=== PATIENT | female | born 1940 | race African-American/Black ===

== ENCOUNTER 2018-05-26 11:07 | Emergency (ER) | payer MEDICARE, MEDICAID ==
[2018-05-26 11:55] LABS: #Basophils 0.1 thou/uL (0.0-0.2); #Eosinphils 0.1 thou/uL (0.0-0.7); #Lymphocytes 1.2 thou/uL (1.20-3.40); #Monocytes 0.4 thou/uL (0.11-0.59); #Neutrophils 4.3 thou/uL (1.40-6.50); %Basophils 0.8 % (0.0-1.0); %Eosinophils 1.8 % (0.0-10.0); %Lymphocytes 20.1 % (21.0-51.0); %Monocytes 7.1 % (0.0-10.0); %Neutrophils 70.2 % (42.0-75.0); Hemoglobin 12.5 g/dL (12.0-16.0); Mean Corpuscular HGB CONC 32.1 g/dL (32.0-36.0); Mean Corpuscular Volume 90.5 fL (78.0-98.0); RBC Distribution Width 14.1 % (11.5-14.5); White Blood Cell (WBC) Count 6.1 thou/uL (4.8-10.8)
[2018-05-26 12:13] LABS: Bilirubin Negative (Negative); Blood, Urine Negative (Negative); Clarity CLOUDY (Clear); Glucose, Urine (Dipstick) Negative (Negative); Leukocyte Small (Negative); Nitrite Positive (Negative); Protein, Urine (Dipstick) 30 mg/dL (Neg-Trace); Specific Gravity, Urine 1.017 (1.002-1.036); Urobilinogen 0.2 mg/dL (0.2-1.0); pH, Urine 7.5 (5.0-9.0)
[2018-05-26 12:14] LABS: Mean Platelet Volume 10.5 fL (7.4-10.4); Platelet Count 151 thou/uL (130-400)
[2018-05-26 12:16] LABS: Bacteria/HPF 4+ HPF (None Seen); Hyaline Casts/LPF 7-10 HYALINE CAST LPF (0-3 Hyaline); Pathc Cast-AUWi Flag 2.47 (0-2.49); RBC/HPF 0-3 HPF (0-3); Squamous Epithelial 21-50 HPF (0-3)
[2018-05-26 12:19] LABS: ALT (SGPT) 13 U/L (8-55); AST (SGOT) 16 U/L (5-34); Albumin 4.1 g/dL (3.4-4.8); Alkaline Phosphatase 70 U/L (40-150); Anion Gap 12 mmol/L (10-20); BUN (Urea Nitrogen) 15 mg/dL (9.8-20.1); Bilirubin, Total 0.9 mg/dL (0.2-1.2); CK (CPK) 125 U/L (29-168); Calc. Creatinine Clearance 0 mL/min (70-130); Calcium 10.5 mg/dL (7.8-10.44); Carbon Dioxide 24 mmol/L (23-31); Chloride 109 mmol/L (98-107); Estimated GFR-MDRD 56; Globulin 3.2 g/dL (2.4-3.5); Glucose 131 mg/dL (83-110); Lipase 50 U/L (8-78); Potassium 3.6 mmol/L (3.5-5.1); Protein, Total 7.3 g/dL (6.0-8.3); Sodium 141 mmol/L (136-145)
[2018-05-26 12:22] LABS: CKMB 2.6 ng/mL (0-6.6); Troponin I Less than 0.010 ng/mL (< 0.028)
[2018-05-26] MEDS ORDERED: Ciprofloxacin 500 MG TAB ONE (12:40)
--- NOTE | 2018-05-26 12:46 | RAD ---
CHEST ONE VIEW: History: Chest pain. Comparison: 04-18-15 FINDINGS: Heart size is enlarged. No pneumothorax. A dual-lead pacer is in place. IMPRESSION: Cardiomegaly. POS: [facility]
--- NOTE | 2018-05-26 12:49 | CT ---
CT BRAIN WITHOUT CONTRAST: History: Altered mental status. Comparison: None. FINDINGS: No hemorrhage or infarct. No midline shift or mass effect. Moderate atrophy. Basal ganglia calcificat ions. Calvarium is intact. Paranasal sinuses and mastoids are clear. IMPRESSION: No acute intracranial abnormality. POS: [facility]
--- NOTE | 2018-05-29 13:25 | EKG ---
Test Reason : Blood Pressure : / mmHG Vent. Rate : 082 BPM Atrial Rate : 082 BPM P-R Int : 190 ms QRS Dur : 156 ms QT Int : 408 ms P-R-T Axes : 000 -65 123 degrees QTc Int : 476 ms AV dual-paced rhythm Abnormal ECG Confirmed by ARNIE LAI ([id number]), editor city AINSLEY CRUZ ([id number]) on 05/29/2018 1:24:27 PM Referred By: Confirmed By:ARNIE LAI
== END 2018-05-26 13:11 | disposition home or self-care (01) ==
LOC: ERS 11:07
DX: N39.0 Urinary tract infection, site not specified (principal); E03.9 Hypothyroidism, unspecified; E78.5 Hyperlipidemia, unspecified; M10.9 Gout, unspecified; I10 Essential (primary) hypertension; Z79.82 Long term (current) use of aspirin; Z79.899 Other long term (current) drug therapy
CPT/HCPCS: 36415; 70450; 71045; 80053; 81003; 81015; 82553; 83690; 84443; 84484; 85025; 87077; 87086; 87186; 93005

== ENCOUNTER 2018-07-20 08:55 | Outpatient (CLI) | payer MEDICARE, MEDICAID ==
[2018-07-20 10:56] LABS: #Eosinphils 0.1 thou/uL (0.0-0.7); #Lymphocytes 1.1 thou/uL (1.20-3.40); #Monocytes 0.5 thou/uL (0.11-0.59); %Basophils 0.3 % (0.0-1.0); %Eosinophils 1.7 % (0.0-10.0); %Lymphocytes 19.8 % (21.0-51.0); %Monocytes 8.1 % (0.0-10.0); Mean Corpuscular HGB CONC 31.8 g/dL (32.0-36.0); Mean Corpuscular Hemoglobin 29.1 pg (27.0-31.0); Mean Corpuscular Volume 91.7 fL (78.0-98.0); Mean Platelet Volume 10.2 fL (7.4-10.4); Platelet Count 157 thou/uL (130-400); RBC Distribution Width 13.6 % (11.5-14.5); Red Blood Cell (RBC) Count 3.76 mill/uL (4.20-5.40); White Blood Cell (WBC) Count 5.7 thou/uL (4.8-10.8)
[2018-07-20 11:15] LABS: ALT (SGPT) 20 U/L (8-55); AST (SGOT) 18 U/L (5-34); Albumin 3.9 g/dL (3.4-4.8); Alkaline Phosphatase 75 U/L (40-150); Anion Gap 9 mmol/L (10-20); BUN (Urea Nitrogen) 16 mg/dL (9.8-20.1); Bilirubin, Total 0.7 mg/dL (0.2-1.2); Calc. Creatinine Clearance 0 mL/min (70-130); Calcium 9.8 mg/dL (7.8-10.44); Carbon Dioxide 30 mmol/L (23-31); Cardiac Risk 2.4 (Less than 4.5); Chloride 107 mmol/L (98-107); Cholesterol 112 mg/dl (< 200 Desired); Estimated GFR-MDRD 59; Globulin 2.9 g/dL (2.4-3.5); Glucose 122 mg/dL (83-110); HDL Cholesterol 47 mg/dL (>60 Neg Risk); LDL Cholesterol, Calculated 54 mg/dL; Potassium 3.5 mmol/L (3.5-5.1); Protein, Total 6.8 g/dL (6.0-8.3); Sodium 142 mmol/L (136-145); Triglycerides 54 mg/dL (Less than 150)
--- NOTE | 2018-07-20 13:16 | EKG ---
Test Reason : Blood Pressure : / mmHG Vent. Rate : 065 BPM Atrial Rate : 065 BPM P-R Int : 000 ms QRS Dur : 156 ms QT Int : 440 ms P-R-T Axes : 000 -72 109 degrees QTc Int : 457 ms AV sequential or dual chamber electronic pacemaker When compared with ECG of 26-MAY-2018 11:19, Vent. rate has decreased BY 17 BPM Confirmed by JULIANA RINCON, DR. Mendoza ([id number]) on 07/20/2018 1:16:13 PM Referred By: BONNIE Confirmed By:DR. Reji ANDREWS MD
--- NOTE | 2018-07-20 13:33 | RAD ---
PA AND LATERAL CHEST: History: Pre-operative evaluation. FINDINGS: Comparison made with exam of 04-18-15 Left sided pacemaker device is in place. The heart is enlarged. The aorta is tortuous. The lungs are well expanded without focal areas of consolidation, pneumothoraces, ramon pulmonary edema or pleural effusions. There are degenerative changes in the spine. IMPRESSION: No acute process. POS: [facility]
== END 2018-07-20 08:56 | disposition home or self-care (01) ==
LOC: LABBT 08:55
PROVIDERS: ATTEND Internal Medicine Cardiovascular Disease
DX: R94.39 Abnormal result of other cardiovascular function study (principal)
CPT/HCPCS: 71046; 80053; 80061; 84443; 85025; 93005; 93010

== ENCOUNTER 2018-07-23 05:48 | Day surgery (SDC) | payer MEDICARE, MEDICAID ==
[2018-07-20 09:27] VITALS: BMI 33.6
[2018-07-23] MEDS ORDERED: Lidocaine 1% (PF) 30 ML VIAL ONE (06:31)
[2018-07-23] MEDS ORDERED: Heparin 10,000 UNITS/1 ML VIAL ONE (06:46)
[2018-07-23] MEDS ORDERED: Midazolam HCl 2 mg/2 ml Vial ONE (07:06)
[2018-07-23] MEDS ORDERED: Fentanyl 100 MCG/2 ML VIAL ONE (07:07)
[2018-07-23] MEDS ORDERED: hydrALAZINE 20 MG/ML VIAL ONE (07:29)
[2018-07-23] MEDS ORDERED: Protamine Sulfate 50 MG/5 ML VIAL ONE (07:29)
[2018-07-23] MEDS ORDERED: Nitroglycerin 4.9 GM Bottle ONE (07:40)
== END 2018-07-23 15:12 | disposition home or self-care (01) ==
LOC: CCL 05:48
PROVIDERS: ATTEND Internal Medicine Cardiovascular Disease
PROC: 4A023N7 Measurement of Cardiac Sampling and Pressure, Left Heart, Percutaneous Approach (ICD-10-PCS; principal; 2018-07-23)
PROC: B2111ZZ Fluoroscopy of Multiple Coronary Arteries using Low Osmolar Contrast (ICD-10-PCS; 2018-07-23)
DX: I25.10 Atherosclerotic heart disease of native coronary artery without angina pectoris (principal); E78.5 Hyperlipidemia, unspecified; E11.9 Type 2 diabetes mellitus without complications; I48.0 Paroxysmal atrial fibrillation; J45.909 Unspecified asthma, uncomplicated; E78.00 Pure hypercholesterolemia, unspecified; I34.0 Nonrheumatic mitral (valve) insufficiency; I35.2 Nonrheumatic aortic (valve) stenosis with insufficiency; E03.9 Hypothyroidism, unspecified; I11.9 Hypertensive heart disease without heart failure; Z79.82 Long term (current) use of aspirin; Z79.899 Other long term (current) drug therapy; Z95.5 Presence of coronary angioplasty implant and graft
CPT/HCPCS: 85347; 93458; 99152; C1769; J0360; J1644; J2001; J2250; J2720; J3010

== ENCOUNTER 2019-12-08 13:51 | Inpatient (IN) | payer MEDICARE, MEDICAID ==
[2019-12-08 14:36] LABS: #Eosinphils 0.1 thou/uL (0.0-0.7); #Lymphocytes 1.4 thou/uL (1.20-3.40); #Monocytes 0.4 thou/uL (0.11-0.59); #Neutrophils 3.7 thou/uL (1.40-6.50); %Basophils 0.8 % (0.0-1.0); %Eosinophils 1.3 % (0.0-10.0); %Lymphocytes 24.6 % (21.0-51.0); %Monocytes 7.6 % (0.0-10.0); %Neutrophils 65.7 % (42.0-75.0); Hemoglobin 12.2 g/dL (12.0-16.0); Mean Corpuscular HGB CONC 31.2 g/dL (32.0-36.0); Mean Corpuscular Hemoglobin 29.3 pg (27.0-31.0); Mean Corpuscular Volume 93.9 fL (78.0-98.0); Mean Platelet Volume 10.1 fL (7.4-10.4); Platelet Count 152 thou/uL (130-400); RBC Distribution Width 14.1 % (11.5-14.5); Red Blood Cell (RBC) Count 4.15 mill/uL (4.20-5.40); White Blood Cell (WBC) Count 5.7 thou/uL (4.8-10.8)
[2019-12-08 14:51] LABS: Bacteria/HPF 4+ HPF (None Seen); Bilirubin Negative (Negative); Blood, Urine 1+ (Negative); Clarity Turbid (Clear); Glucose, Urine (Dipstick) Normal (Negative); Leukocyte Negative Leu/uL (Negative); Nitrite 2+ (Negative); Protein, Urine (Dipstick) 100 mg/dL (Neg-Trace); RBC/HPF 0-3 HPF (0-3); Squamous Epithelial 0-3 HPF (0-3); Urobilinogen Normal mg/dL (Less than 2); WBC/HPF 0-3 HPF (0-3)
[2019-12-08] MEDS ORDERED: hydrALAZINE 20 MG/ML VIAL ONE (14:54)
[2019-12-08 14:55] LABS: ALT (SGPT) 14 U/L (8-55); AST (SGOT) 18 U/L (5-34); Albumin 4.2 g/dL (3.4-4.8); Alkaline Phosphatase 87 U/L (40-110); Anion Gap 9 mmol/L (10-20); BUN (Urea Nitrogen) 16 mg/dL (9.8-20.1); Bilirubin, Total 0.7 mg/dL (0.2-1.2); CK (CPK) 272 U/L (29-168); Calc. Creatinine Clearance 0 mL/min (70-130); Calcium 10.6 mg/dL (7.8-10.44); Carbon Dioxide 28 mmol/L (23-31); Chloride 109 mmol/L (98-107); Estimated GFR-MDRD 47; Globulin 3.3 g/dL (2.4-3.5); Glucose 132 mg/dL (83-110); Lipase 38 U/L (8-78); Potassium 3.4 mmol/L (3.5-5.1); Protein, Total 7.5 g/dL (6.0-8.3); Sodium 143 mmol/L (136-145)
[2019-12-08 15:16] LABS: CKMB 4.8 ng/mL (0-6.6)
--- NOTE | 2019-12-08 15:20 | RAD ---
PORTABLE CHEST 1 VIEW: DATE: 12/08/2019. TIME: 2:38 PM. HISTORY: Altered mental status. COMPARISON: 07/20/2018. FINDINGS: The heart is enlarged. Left-sided pacing device remains in place. The aorta is tortuous. The lungs are well expanded without lobar consolidation, pneumothoraces, ramon pulmonary edema, or pleural eff usions. IMPRESSION: No acute process. POS: [facility]
[2019-12-08] MEDS ORDERED: cefTRIAXone\\ROCEPHIN 2 GM VIAL ONE (15:40)
[2019-12-08] MEDS ORDERED: Lorazepam 2 MG/ML VIAL ONE (16:05)
--- NOTE | 2019-12-08 16:29 | CT ---
CT BRAIN WITHOUT CONTRAST: 12/08/19 HISTORY: Altered mental status. COMPARISON: 03/26/18. There are changes of cortical atrophy and chronic small vessel ischemic disease. Bilateral basal gang mervat calcifications are again seen. The ventricular size is stable and the basilar cisterns patent. No evidence of acute infarct, hemorrhage, midline shift or abnormal extra-axial fluid collections are seen. The bony calvarium is intact. There is mucosal disease in the paranasal sinuses. IMPRESSION: No CT evidence of acute intracranial process. POS: [facility]
[2019-12-08 18:19] LABS: Troponin I 0.041 ng/mL (< 0.028)
[2019-12-08] MEDS ORDERED: Ondansetron PF 4 MG/2 ML Vial IVP PRN (18:22)
[2019-12-08] MEDS ORDERED: Ondansetron ODT 4 MG TAB SL PRN (18:22)
[2019-12-08] MEDS ORDERED: Haloperidol 1 MG TAB PO PRN (18:24)
[2019-12-08] MEDS: Sodium Chloride 0.9% 1,000 ML IV SCH (18:40)
--- NOTE | 2019-12-08 18:41 | HP ---
The HPI is based on the EMR and the ED report, as well as verbal report from the son because the patient is confused on encounter. HISTORY OF PRESENT ILLNESS: Ms. Rooney is an 79-year-old female with a medical history of type 2 diabetes mellitus, hypertension, and CKD who presents for confusion. The patient lives on her own; however, three days ago, the son came to the patient's apartment and saw that the patient was confused. The son then took the patient to his apartment and lived with her for the last couple of days. During the patient's stay in the son's apartment, the patient refused to take any of the medications, and her confusion and agitation continued to progress, so the son brought the patient to the ED. On encounter, the patient is lying comfortably in bed and is mildly agitated. She denies generalized weakness, fatigue, chills, night sweats, chest pain, palpitations, back pain, diarrhea, polyuria, hematuria, hematochezia, hematemesis, melena, dysuria, increased urinary frequency or urinary incontinence. She also denies recently leaving her apartment to crowded places. ED COURSE: In the ED, the patient's blood pressure was found to be grossly elevated, CK was mildly elevated and troponin was mildly elevated as well. The patient also had a CT head and chest x-ray that were unremarkable for any acute process. The patient was admitted to the telemetry observation floor for further treatment. REVIEW OF SYSTEMS: A full review of system was conducted and all was negative with the exception of that mentioned in the HPI. PAST MEDICAL HISTORY: Hypertension, type 2 diabetes, no longer being actively treated with medications, hyperlipidemia, glaucoma. PAST SURGICAL HISTORY: Hysterectomy, pacemaker placed for bradycardia. ALLERGIES: NO KNOWN DRUG ALLERGIES. SOCIAL HISTORY: , living on her own. Does not smoke, drink, or do recreational drugs. She lives by herself and takes care of herself. FAMILY HISTORY: Hypertension, coronary artery disease in the father as well as cancer. MEDICATIONS: Per EMR. Medications will be reconciled. PHYSICAL EXAMINATION: VITAL SIGNS: Blood pressure 217/95, per ED physician. Prior to encounter, blood pressure was brought down to 174/90s. Pulse 61, respiratory rate 20, temperature 99.2 oral, and saturating 98% on room air. GENERAL: Lying comfortably in bed, mildly agitated. HEENT: Atraumatic and normocephalic. Pupils appear equal, about 3 mm; however , the patient would not allow to do a light exam. NECK: The patient refused. LUNGS: Clear to auscultation bilaterally in the anterior conway. The patient otherwise refused an exam. CARDIOVASCULAR: Regular rate and rhythm. A systolic murmur 2/6, most audible in the left second intercostal space. ABDOMEN: Refused. EXTREMITIES: Refused. NEUROLOGIC: Alert, oriented x1 only to self. LABS AND IMAGING: Reviewed. EKG showed paced rhythm with no concordant changes suggestive of an VT. ASSESSMENT AND PLAN: Ms. Rooney is an 79-year-old female with a medical history of hypertension, who presents with hypertensive emergency due to medication nonadherence. 1. Hypertensive emergency. a. Blood pressure 200s in the ED. b. Administered hydralazine. Blood pressure went down to 170s. c. Per the son, the patient has not been taking her medications at least the past couple of days. d. On exam, the patient is confused, CK mildly elevated and troponin mildly elevated, therefore, hypertensive emergency. e. Plan: I. Gradually decrease the patient's blood pressure to goal of below 130 to 80 based on AHA guidelines. II. We will restart the patient's antihypertensive gradually as well as easily titratable IV medication p.r.n. 2. Troponinemia. a. Most likely due to demand ischemia, result of the grossly elevated blood pressure. b. We will continue to trend troponins. 3. Type 2 diabetes. a. The patient was diagnosed years ago, however, is not currently managed with medication. b. We will treat with mild sliding scale. 4. Urinary bacterial colonization. a. Urinalysis shows bacteria, however, no leukocyte esterase or white count. b. The patient denies any symptoms suggestive of urinary tract infection. c. We will continue to follow for symptoms of fever. If the patient spikes a fever, can start her on ceftriaxone. Pending further evaluation. 5. Disposition/prophylaxis. a. The patient is full code. The son, who is the patient's surrogate decision maker, requested the patient to be full code. 6. Deep venous thrombosis prophylaxis, enoxaparin. 7. Gastrointestinal prophylaxis not indicated. 8. Expected length of stay two midnights. Job ID: [id number] [facility]
[2019-12-08] MEDS ORDERED: Potassium Chloride 20 MEQ TAB PO SCH (20:00)
[2019-12-08] MEDS ORDERED: hydrALAZINE 25 MG TAB PO SCH (20:00)
[2019-12-08] MEDS ORDERED: Acetaminophen 650 MG Suppository PR PRN (21:03)
[2019-12-08] MEDS ORDERED: hydrALAZINE 20 MG/ML VIAL SLOW IVP PRN (21:04)
--- NOTE | 2019-12-08 21:07 | PDOC.EVN ---
Event Note - Event Note Event Note: Notified by RN, patient refusing to take oral potassium (took 1/2 tablet) also with mild temp. Refusing hydralazine. Acetaminophen MA ordered given low grade temp of 99.4, IV hydralazine PRN for SBP >180 ordered as well as IV potassium replacement (20 mEq to complete total dose of [address] Murphy. Patient received rocephin in ED for suspected UTI. UA + nitrites and 4+ bacteria. UCx pending.
[2019-12-08] MEDS ORDERED: Potassium Chloride 20 MEQ in Premix Bag 1 BAG IVPB SCH (21:30)
[2019-12-08] MEDS: DorzolamidE/Timolol 2%/0.5% Ophth Soln 10 ml Bottle EA EYE SCH (21:46)
[2019-12-08] MEDS: Latanoprost 0.005% Ophth Soln 2.5 ml Bottle EA EYE SCH (21:46)
[2019-12-08] MEDS: Metoprolol Tartrate 100 MG TAB PO SCH (21:47)
[2019-12-08] MEDS: Atorvastatin Calcium 40 MG TAB PO SCH (21:48)
[2019-12-08] MEDS: hydrALAZINE 25 MG TAB PO SCH (21:48)
[2019-12-09] MEDS ORDERED: Labetalol HCl 100 MG/20 ML VIAL SLOW IVP SCH (00:15)
[2019-12-09] MEDS: hydrALAZINE 20 MG/ML VIAL SLOW IVP PRN ×3 (05:25→17:26)
[2019-12-09] MEDS: Levothyroxine Sodium 100 MCG TAB PO SCH (05:29)
[2019-12-09] MEDS: hydrALAZINE 25 MG TAB PO SCH ×3 (08:47→20:30)
[2019-12-09] MEDS: Aspirin Chewable 81 MG TAB PO SCH (08:47)
[2019-12-09] MEDS: Metoprolol Tartrate 100 MG TAB PO SCH ×2 (08:48→20:30)
[2019-12-09] MEDS: Enoxaparin Sodium 30 MG/0.3 ML SYRINGE SC SCH (08:48)
[2019-12-09] MEDS: DorzolamidE/Timolol 2%/0.5% Ophth Soln 10 ml Bottle EA EYE SCH ×3 (08:49→20:45)
[2019-12-09] MEDS ORDERED: Haloperidol 1 MG TAB PO PRN (08:58)
[2019-12-09] MEDS: Labetalol HCl 100 MG/20 ML VIAL SLOW IVP SCH ×3 (09:20→20:31)
[2019-12-09 10:17] LABS: Anion Gap 10 mmol/L (10-20); BUN (Urea Nitrogen) 10 mg/dL (9.8-20.1); Calc. Creatinine Clearance 64 mL/min (70-130); Carbon Dioxide 24 mmol/L (23-31); Chloride 110 mmol/L (98-107); Estimated GFR-MDRD 71; Glucose 122 mg/dL (83-110); Magnesium 1.3 mg/dL (1.6-2.6); Potassium 3.4 mmol/L (3.5-5.1); Sodium 141 mmol/L (136-145)
[2019-12-09 10:22] LABS: Troponin I 0.063 ng/mL (< 0.028)
--- NOTE | 2019-12-09 13:28 | PDOC.HOSPP ---
- Subjective Encounter Date: 12/09/19 Encounter Time: 09:00 Subjective: overnight, remains confused and refusing to take medications, however, this morning calmer and more cooperative. Has no complaints. Denies pain, headache, change in vision, chest pain, palpitations. - Objective Vital Signs & Weight: Vital Signs (12 hours) Temp Pulse Pulse Pulse Resp BP BP 12/09/19 11:24 99.0 F 61 18 12/09/19 11:20 61 184/82 H 12/09/19 09:41 62 66 163/72 H 12/09/19 09:20 60 163/71 H 12/09/19 08:47 63 191/81 H 12/09/19 07:32 98.5 F 63 16 12/09/19 05:25 61 200/81 H 12/09/19 04:00 98.2 F 62 18 BP BP Pulse Ox 12/09/19 11:24 184/82 H 96 12/09/19 11:20 12/09/19 09:41 158/68 H 12/09/19 09:20 12/09/19 08:47 12/09/19 07:32 191/81 H 97 12/09/19 05:25 12/09/19 04:00 193/78 H 98 Weight Weight 183 lb 9 oz I&O: 12/08/19 12/09/19 12/10/19 06:59 06:59 06:59 Intake Total 10 Balance 10 Result Diagrams: 12/08/19 14:18 12/09/19 09:36 Additional Labs: Accuchecks 12/08/19 16:12 POC Glucose 98 Hospitalist ROS - Review of Systems Constitutional: denies: fever, chills, sweats, weakness, malaise, other Respiratory: denies: cough, dry, shortness of breath, hemoptysis, SOB with excertion, pleuritic pain, sputum, wheezing, other Cardiovascular: denies: chest pain, palpitations, orthopnea, paroxysmal noc. dyspnea, edema, light headedness, other Gastrointestinal: denies: nausea, vomiting, abdominal pain, diarrhea, constipation, melena, hematochezia, other Genitourinary: denies: dysuria, frequency, incontinence, hematuria, retention, other - Medication Medications: Active Medications Generic Name Dose Route Start Last Admin Trade Name Freq PRN Reason Stop Dose Admin Acetaminophen 650 mg 12/08/19 21:03 12/09/19 00:16 Tylenol [place] 650 mg Q4H PRN Administration Headache/Fever or Pain Aspirin 81 mg 12/09/19 09:00 12/09/19 08:47 Aspirin Chewable PO 81 mg DAILY AMANDA Administration Atorvastatin Calcium 40 mg 12/08/19 21:00 12/08/19 21:48 Lipitor PO Not Given HS AMANDA Dorzolamide/Timolol 1 drop 12/08/19 21:00 12/09/19 08:49 Cosopt 2-0.5% Ophth Soln EA EYE 1 drop BID AMANDA Administration Enoxaparin Sodium 30 mg 12/09/19 09:00 12/09/19 08:48 Lovenox SC 30 mg 0900 AMANDA Administration Hydralazine HCl 50 mg 12/08/19 21:00 12/09/19 08:47 Apresoline PO 50 mg TID AMANDA Administration Hydralazine HCl 10 mg 12/08/19 18:24 12/09/19 11:20 Apresoline SLOW IVP 10 mg Q4H PRN Administration bp > 180/110 Sodium Chloride 1,000 mls @ 70 mls/hr 12/08/19 18:24 12/08/19 18:40 Normal Saline 0.9% IV 1,000 mls .[id number] AMANDA Administration Labetalol HCl 10 mg 12/09/19 09:00 12/09/19 09:20 Normodyne SLOW IVP 10 mg Q6H AMANDA Administration Latanoprost 1 drop 12/08/19 21:00 12/08/19 21:46 Xalatan 0.005% Ophth Soln EA EYE 1 drop HS AMANDA Administration Levothyroxine Sodium 100 mcg 12/09/19 06:00 12/09/19 05:29 Synthroid PO Not Given 0600 AMAN[facility] Metoprolol Tartrate 100 mg 12/08/19 21:00 12/09/19 08:48 Lopressor PO 100 mg BID AMANDA Administration Sodium Chloride 10 ml 12/08/19 21:00 12/09/19 08:50 Flush - Normal Saline IVF Not Given Q12HR AMANDA Sodium Chloride 10 ml 12/08/19 18:21 12/09/19 00:25 Flush - Normal Saline IVF 10 ml PRN PRN Administration Saline Flush - Exam General Appearance: NAD, awake alert Neck: supple, symmetric, no JVD, no thyromegaly, no lymphadenopathy, no carotid bruit Heart: RRR, no murmur, no gallops, no rubs, normal peripheral pulses Respiratory: CTAB, no wheezes, no rales, no ronchi, normal chest expansion, no tachypnea, normal percussion Gastrointestinal: soft, non-tender, non-distended, normal bowel sounds, no palpable masses, no hepatomegaly, no splenomegaly, no bruit Extremities: no edema Psychiatric: normal behavior, not oriented Hosp A/P - Plan #Hypertensive encephalopathy -patient not adherent to medications overnight, now more cooperative -remains confused though less agitated -denies symptoms of UTI; UA positive for bacteria but negative for leukoesterase or WBCs, suggestive of colonization rather than infection -spiked low grade fever despite receiving rocephin in ED -change to inpatient status -blood pressure control; goal to reduce blood pressure as soon as possible to 160/90s range, then gradually to goal 130/80 -if spikes another fever, repeat UA and start ceftriaxone for suspected UTI #type 2 NSTEMI -troponin downtrending likely demand due to hypertensive emergency
[2019-12-09] MEDS ORDERED: Potassium Chloride 20 MEQ TAB PO SCH (14:00)
[2019-12-09] MEDS ORDERED: Magnesium Oxide 400 MG TAB PO SCH (14:00)
[2019-12-09] MEDS: Sodium Chloride 0.9% 1,000 ML IV SCH (14:11)
[2019-12-09] MEDS ORDERED: SODIUM CHLORIDE 0.9% IVPB SCH (14:45)
[2019-12-09] MEDS ORDERED: MAGNESIUM SULFATE IVPB SCH (14:45)
[2019-12-09] MEDS ORDERED: POTASSIUM CHLORIDE IVPB SCH (14:45)
[2019-12-09] MEDS ORDERED: Furosemide 20 MG/2 ML VIAL SLOW IVP SCH (15:15)
[2019-12-09] MEDS ORDERED: cefTRIAXone\\ROCEPHIN 2 GM in Sodium Chloride 0.9% 100 ML IVPB SCH (16:00)
[2019-12-09] MEDS: Atorvastatin Calcium 40 MG TAB PO SCH (20:30)
[2019-12-09] MEDS: Latanoprost 0.005% Ophth Soln 2.5 ml Bottle EA EYE SCH (20:31)
[2019-12-10] MEDS: hydrALAZINE 20 MG/ML VIAL SLOW IVP PRN ×2 (00:47→12:07)
[2019-12-10] MEDS: Labetalol HCl 100 MG/20 ML VIAL SLOW IVP SCH ×4 (02:54→20:55)
[2019-12-10 06:44] LABS: Anion Gap 14 mmol/L (10-20); BUN (Urea Nitrogen) 10 mg/dL (9.8-20.1); Calc. Creatinine Clearance 56 mL/min (70-130); Calcium 10.4 mg/dL (7.8-10.44); Carbon Dioxide 20 mmol/L (23-31); Chloride 111 mmol/L (98-107); Estimated GFR-MDRD 60; Glucose 91 mg/dL (83-110); Potassium 3.9 mmol/L (3.5-5.1); Sodium 141 mmol/L (136-145)
[2019-12-10] MEDS: Levothyroxine Sodium 100 MCG TAB PO SCH (07:04)
[2019-12-10] MEDS: Furosemide 20 MG/2 ML VIAL SLOW IVP SCH (08:43)
[2019-12-10] MEDS: Enoxaparin Sodium 30 MG/0.3 ML SYRINGE SC SCH (08:47)
[2019-12-10] MEDS: DorzolamidE/Timolol 2%/0.5% Ophth Soln 10 ml Bottle EA EYE SCH ×2 (08:47→20:55)
[2019-12-10] MEDS: Metoprolol Tartrate 100 MG TAB PO SCH ×3 (08:48→20:52)
[2019-12-10] MEDS: hydrALAZINE 25 MG TAB PO SCH ×4 (08:48→20:51)
[2019-12-10] MEDS: Aspirin Chewable 81 MG TAB PO SCH ×2 (08:48→08:55)
[2019-12-10] MEDS ORDERED: Furosemide 20 MG TAB PO SCH (09:00)
[2019-12-10] MEDS: cefTRIAXone\\ROCEPHIN 1 GM in Sodium Chloride 0.9% 100 ML IVPB SCH (10:48)
[2019-12-10] MEDS: Isosorbide Mononitrate (ER) 30 MG TAB PO SCH ×2 (10:49→11:00)
[2019-12-10] MEDS: Amlodipine 10 MG TAB PO SCH ×2 (10:49→11:00)
--- NOTE | 2019-12-10 14:22 | PDOC.HOSPP ---
- Subjective Encounter Date: 12/10/19 Subjective: Confused. - Objective Vital Signs & Weight: Vital Signs (12 hours) Temp Pulse Resp BP BP BP Pulse Ox 12/10/19 12:07 60 186/86 H 12/10/19 12:00 98.7 F 60 24 H 186/86 H 99 12/10/19 11:00 83 172/80 H 12/10/19 08:52 83 172/80 H 12/10/19 08:43 83 172/80 H 12/10/19 07:51 98.5 F 83 18 172/80 H 98 12/10/19 07:29 99 12/10/19 04:35 98.8 F 77 16 158/81 H 99 12/10/19 02:54 65 186/86 H Weight Admit Weight 183 lb Weight 183 lb 9 oz I&O: 12/09/19 12/10/19 12/11/19 06:59 06:59 06:59 Intake Total 10 840 Balance 10 840 Result Diagrams: 12/08/19 14:18 12/10/19 06:15 Hospitalist ROS - Medication Medications: Active Medications Generic Name Dose Route Start Last Admin Trade Name Freq PRN Reason Stop Dose Admin Acetaminophen 650 mg 12/08/19 21:03 12/09/19 00:16 Tylenol [place] 650 mg Q4H PRN Administration Headache/Fever or Pain Aspirin 81 mg 12/09/19 09:00 12/10/19 08:55 Aspirin Chewable PO Not Given DAILY [facility] Atorvastatin Calcium 40 mg 12/08/19 21:00 12/09/19 20:30 Lipitor PO Not Given HS [facility] Dorzolamide/Timolol 1 drop 12/08/19 21:00 12/10/19 08:47 Cosopt 2-0.5% Ophth Soln EA EYE 1 drop BID AMANDA Administration Enoxaparin Sodium 30 mg 12/09/19 09:00 12/10/19 08:47 Lovenox SC 30 mg 0900 AMANDA Administration Furosemide 20 mg 12/10/19 09:00 12/10/19 08:43 Lasix SLOW IVP 20 mg DAILY AMANDA Administration Hydralazine HCl 50 mg 12/08/19 21:00 12/10/19 08:52 Apresoline PO Not Given TID [facility] Hydralazine HCl 10 mg 12/08/19 18:24 12/10/19 12:07 Apresoline SLOW IVP 10 mg Q4H PRN Administration bp > 180/110 Ceftriaxone Sodium 1 gm/ 100 mls @ 200 mls/hr 12/10/19 11:00 12/10/19 10:48 Sodium Chloride IVPB 100 mls 1100 AMANDA Administration Labetalol HCl 10 mg 12/09/19 09:00 12/10/19 08:43 Normodyne SLOW IVP 10 mg Q6H AMANDA Administration Latanoprost 1 drop 12/08/19 21:00 12/09/19 20:31 Xalatan 0.005% Ophth Soln EA EYE 1 drop HS AMANDA Administration Levothyroxine Sodium 100 mcg 12/09/19 06:00 12/10/19 07:04 Synthroid PO Not Given 0600 AM[facility] Metoprolol Tartrate 100 mg 12/08/19 21:00 12/10/19 08:54 Lopressor PO Not Given BID [facility] Sodium Chloride 10 ml 12/08/19 21:00 12/10/19 08:48 Flush - Normal Saline IVF 10 ml Q12HR AMANDA Administration Sodium Chloride 10 ml 12/08/19 18:21 12/09/19 00:25 Flush - Normal Saline IVF 10 ml PRN PRN Administration Saline Flush - Exam General Appearance: awake alert ENT: normocephalic atraumatic Neck: supple Heart: RRR, no gallops Respiratory: CTAB Gastrointestinal: soft, non-tender, non-distended Hosp A/P (1) Delirium Code(s): R41.0 - DISORIENTATION, UNSPECIFIED Status: Acute (2) UTI (urinary tract infection) Status: Acute (3) Hypertensive emergency Code(s): I16.1 - HYPERTENSIVE EMERGENCY Status: Acute - Plan The patient is not taking her oral medications including oral antihypertensives. Her blood pressure is being controlled with IV hydralazine and labetalol. Confusion could be delirium related to UTI. Start IV ceftriaxone.
[2019-12-10] MEDS: Atorvastatin Calcium 40 MG TAB PO SCH (20:51)
[2019-12-10] MEDS: Latanoprost 0.005% Ophth Soln 2.5 ml Bottle EA EYE SCH (20:55)
[2019-12-11] MEDS: Labetalol HCl 100 MG/20 ML VIAL SLOW IVP SCH ×4 (04:33→20:40)
[2019-12-11] MEDS: Levothyroxine Sodium 100 MCG TAB PO SCH (05:18)
[2019-12-11] MEDS: hydrALAZINE 25 MG TAB PO SCH ×3 (08:39→20:44)
[2019-12-11] MEDS: Aspirin Chewable 81 MG TAB PO SCH (08:39)
[2019-12-11] MEDS: Amlodipine 10 MG TAB PO SCH (08:39)
[2019-12-11] MEDS: Metoprolol Tartrate 100 MG TAB PO SCH ×2 (08:40→20:44)
[2019-12-11] MEDS: Isosorbide Mononitrate (ER) 30 MG TAB PO SCH (08:40)
[2019-12-11] MEDS: Furosemide 20 MG/2 ML VIAL SLOW IVP SCH (08:42)
[2019-12-11] MEDS: DorzolamidE/Timolol 2%/0.5% Ophth Soln 10 ml Bottle EA EYE SCH ×2 (08:42→20:46)
[2019-12-11] MEDS: Enoxaparin Sodium 30 MG/0.3 ML SYRINGE SC SCH (08:42)
[2019-12-11 08:47] LABS: Hemoglobin 13.3 g/dL (12.0-16.0); Mean Corpuscular HGB CONC 31.2 g/dL (32.0-36.0); Mean Corpuscular Hemoglobin 28.7 pg (27.0-31.0); Mean Platelet Volume 10.8 fL (7.4-10.4); Platelet Count 141 thou/uL (130-400); RBC Distribution Width 14.1 % (11.5-14.5); Red Blood Cell (RBC) Count 4.63 mill/uL (4.20-5.40); White Blood Cell (WBC) Count 5.8 thou/uL (4.8-10.8)
[2019-12-11 08:50] LABS: Anion Gap 16 mmol/L (10-20); BUN (Urea Nitrogen) 20 mg/dL (9.8-20.1); Calc. Creatinine Clearance 43 mL/min (70-130); Calcium 11.3 mg/dL (7.8-10.44); Carbon Dioxide 24 mmol/L (23-31); Chloride 107 mmol/L (98-107); Estimated GFR-MDRD 45; Glucose 82 mg/dL (83-110); Potassium 3.6 mmol/L (3.5-5.1); Sodium 143 mmol/L (136-145)
[2019-12-11 09:33] LABS: Hypochromia SLIGHT = 6-15 cells (100X) (0-5/hpf); Large Platelets SLIGHT; MDiff Complete? YES; Platelet Morphology Comment Appears Adequate
[2019-12-11] MEDS: Dextrose 5 %-0.45 % NaCl 1,000 ML IV SCH (10:07)
[2019-12-11] MEDS: cefTRIAXone\\ROCEPHIN 1 GM in Sodium Chloride 0.9% 100 ML IVPB SCH (10:12)
--- NOTE | 2019-12-11 10:40 | PDOC.HOSPP ---
- Subjective Encounter Date: 12/11/19 Subjective: Remains confused with poor PO intake. - Objective Vital Signs & Weight: Vital Signs (12 hours) Temp Pulse Resp BP BP BP Pulse Ox 12/11/19 08:42 82 107/51 L 12/11/19 08:39 82 12/11/19 08:00 98.2 F 82 17 107/51 L 98 12/11/19 04:33 69 183/88 H 12/11/19 04:13 69 16 183/88 H 99 12/11/19 00:00 99.1 F 64 16 135/62 98 Weight Admit Weight 183 lb Weight 183 lb 9 oz I&O: 12/10/19 12/11/19 12/12/19 06:59 06:59 06:59 Intake Total 840 0 Balance 840 0 Result Diagrams: 12/11/19 08:24 12/11/19 08:24 Hospitalist ROS - Medication Medications: Active Medications Generic Name Dose Route Start Last Admin Trade Name Freq PRN Reason Stop Dose Admin Acetaminophen 650 mg 12/08/19 21:03 12/09/19 00:16 Tylenol [place] 650 mg Q4H PRN Administration Headache/Fever or Pain Amlodipine Besylate 10 mg 12/11/19 09:00 12/11/19 08:39 Norvasc PO Not Given DAILY [facility] Aspirin 81 mg 12/09/19 09:00 12/11/19 08:39 Aspirin Chewable PO Not Given DAILY [facility] Atorvastatin Calcium 40 mg 12/08/19 21:00 12/10/19 20:51 Lipitor PO Not Given [facility] Dorzolamide/Timolol 1 drop 12/08/19 21:00 12/11/19 08:42 Cosopt 2-0.5% Ophth Soln EA EYE 1 drop BID AMANDA Administration Enoxaparin Sodium 30 mg 12/09/19 09:00 12/11/19 08:42 Lovenox SC 30 mg 0900 AMANDA Administration Furosemide 20 mg 12/10/19 09:00 12/11/19 08:42 Lasix SLOW IVP 20 mg DAILY AMANDA Administration Hydralazine HCl 50 mg 12/08/19 21:00 12/11/19 08:39 Apresoline PO Not Given TID AMANDA Hydralazine HCl 10 mg 12/08/19 18:24 12/10/19 12:07 Apresoline SLOW IVP 10 mg Q4H PRN Administration bp > 180/110 Ceftriaxone Sodium 1 gm/ 100 mls @ 200 mls/hr 12/10/19 11:00 12/11/19 10:12 Sodium Chloride IVPB 100 mls 1100 AMANDA Administration Dextrose/Sodium Chloride 1,000 mls @ 75 mls/hr 12/11/19 09:45 12/11/19 10:07 D5 1/2 Ns IV 1,000 mls .[id number] AMANDA Administration Isosorbide Mononitrate 30 mg 12/11/19 09:00 12/11/19 08:40 Imdur Er PO Not Given DAILY AM[facility] Labetalol HCl 10 mg 12/09/19 09:00 12/11/19 08:42 Normodyne SLOW IVP 10 mg Q6H AMANDA Administration Latanoprost 1 drop 12/08/19 21:00 12/10/19 20:55 Xalatan 0.005% Ophth Soln EA EYE 1 drop HS AMANDA Administration Levothyroxine Sodium 100 mcg 12/09/19 06:00 12/11/19 05:18 Synthroid PO Not Given 0600 AMANDA Metoprolol Tartrate 100 mg 12/08/19 21:00 12/11/19 08:40 Lopressor PO Not Given BID AMANDA Sodium Chloride 10 ml 12/08/19 21:00 12/11/19 08:42 Flush - Normal Saline IVF 10 ml Q12HR AMANDA Administration Sodium Chloride 10 ml 12/08/19 18:21 12/09/19 00:25 Flush - Normal Saline IVF 10 ml PRN PRN Administration Saline Flush - Exam General Appearance: awake alert ENT: normocephalic atraumatic Neck: supple Heart: RRR Respiratory: normal chest expansion, no tachypnea Neurological: cranial nerve grossly intact Hosp A/P (1) Delirium Code(s): R41.0 - DISORIENTATION, UNSPECIFIED Status: Acute (2) UTI (urinary tract infection) Status: Acute (3) Hypertensive emergency Code(s): I16.1 - HYPERTENSIVE EMERGENCY Status: Acute - Plan The patient is not taking her oral medications including oral antihypertensives. Her blood pressure is being controlled with IV hydralazine and labetalol. Confusion could be delirium related to UTI. CX positive for E.Coli. Continue IV ceftriaxone. PT,OT, and ST evaluation. KRISTAL due to dehydration and poor PO intake. Start D5 1/5 NS at 75 cc/hrs.
[2019-12-11] MEDS: Atorvastatin Calcium 40 MG TAB PO SCH (20:44)
[2019-12-11] MEDS: Latanoprost 0.005% Ophth Soln 2.5 ml Bottle EA EYE SCH (20:47)
[2019-12-12] MEDS: Dextrose 5 %-0.45 % NaCl 1,000 ML IV SCH ×2 (00:34→15:05)
[2019-12-12] MEDS: Labetalol HCl 100 MG/20 ML VIAL SLOW IVP SCH ×4 (04:06→21:00)
[2019-12-12] MEDS: Levothyroxine Sodium 100 MCG TAB PO SCH (05:14)
[2019-12-12] MEDS: Aspirin Chewable 81 MG TAB PO SCH (08:48)
[2019-12-12] MEDS: Amlodipine 10 MG TAB PO SCH (08:48)
[2019-12-12] MEDS: hydrALAZINE 25 MG TAB PO SCH ×3 (08:48→21:19)
[2019-12-12] MEDS: Isosorbide Mononitrate (ER) 30 MG TAB PO SCH (08:49)
[2019-12-12] MEDS: Metoprolol Tartrate 100 MG TAB PO SCH ×2 (08:49→21:19)
[2019-12-12] MEDS: Enoxaparin Sodium 30 MG/0.3 ML SYRINGE SC SCH (08:50)
[2019-12-12] MEDS: DorzolamidE/Timolol 2%/0.5% Ophth Soln 10 ml Bottle EA EYE SCH ×2 (08:50→21:20)
[2019-12-12] MEDS: Furosemide 20 MG/2 ML VIAL SLOW IVP SCH (08:51)
[2019-12-12] MEDS: cefTRIAXone\\ROCEPHIN 1 GM in Sodium Chloride 0.9% 100 ML IVPB SCH (10:30)
[2019-12-12 10:35] LABS: Anion Gap 13 mmol/L (10-20); BUN (Urea Nitrogen) 19 mg/dL (9.8-20.1); Calc. Creatinine Clearance 48 mL/min (70-130); Calcium 10.9 mg/dL (7.8-10.44); Carbon Dioxide 23 mmol/L (23-31); Chloride 106 mmol/L (98-107); Estimated GFR-MDRD 50; Glucose 128 mg/dL (83-110); Potassium 3.6 mmol/L (3.5-5.1); Sodium 138 mmol/L (136-145)
[2019-12-12] MEDS: hydrALAZINE 20 MG/ML VIAL SLOW IVP PRN (11:45)
[2019-12-12 12:33] LABS: Band 4 % (5-11); Eosinophils 3 % (0-10); Hemoglobin 12.7 g/dL (12.0-16.0); Lymphocytes 34 % (21-51); MDiff Complete? YES; Mean Corpuscular HGB CONC 31.1 g/dL (32.0-36.0); Mean Corpuscular Hemoglobin 28.8 pg (27.0-31.0); Mean Corpuscular Volume 92.6 fL (78.0-98.0); Monocytes 6 % (0-10); Neutrophil 53 % (42-75); Platelet Count 134 thou/uL (130-400); RBC Distribution Width 13.8 % (11.5-14.5); RBC Morphology Normal; Red Blood Cell (RBC) Count 4.41 mill/uL (4.20-5.40); White Blood Cell (WBC) Count 4.5 thou/uL (4.8-10.8)
--- NOTE | 2019-12-12 13:07 | PDOC.HOSPP ---
- Subjective Encounter Date: 12/12/19 Subjective: Remains confused and not eating well. - Objective Vital Signs & Weight: Vital Signs (12 hours) Temp Pulse Pulse Pulse Resp BP BP 12/12/19 11:45 61 197/88 H 12/12/19 11:27 98.1 F 61 16 12/12/19 09:32 62 62 180/84 H 12/12/19 08:52 64 144/69 H 12/12/19 08:48 64 12/12/19 07:31 98.2 F 64 16 12/12/19 04:06 63 177/74 H 12/12/19 04:00 97.8 F 20 BP BP Pulse Ox 12/12/19 11:45 12/12/19 11:27 197/88 H 95 12/12/19 09:32 169/74 H 12/12/19 08:52 12/12/19 08:48 12/12/19 07:31 144/69 H 96 12/12/19 04:06 12/12/19 04:00 98 Weight Admit Weight 183 lb Weight 183 lb 9 oz I&O: 12/11/19 12/12/19 12/13/19 06:59 06:59 06:59 Intake Total 0 Balance 0 Result Diagrams: 12/12/19 09:56 12/12/19 09:56 Hospitalist ROS - Medication Medications: Active Medications Generic Name Dose Route Start Last Admin Trade Name Freq PRN Reason Stop Dose Admin Acetaminophen 650 mg 12/08/19 21:03 12/09/19 00:16 Tylenol [place] 650 mg Q4H PRN Administration Headache/Fever or Pain Amlodipine Besylate 10 mg 12/11/19 09:00 12/12/19 08:48 Norvasc PO Not Given DAILY [facility] Aspirin 81 mg 12/09/19 09:00 12/12/19 08:48 Aspirin Chewable PO Not Given DAILY [facility] Atorvastatin Calcium 40 mg 12/08/19 21:00 12/11/19 20:44 Lipitor PO Not Given HS [facility] Dorzolamide/Timolol 1 drop 12/08/19 21:00 12/12/19 08:50 Cosopt 2-0.5% Ophth Soln EA EYE 1 drop BID [facility] Administration Enoxaparin Sodium 30 mg 12/09/19 09:00 12/12/19 08:50 Lovenox SC 30 mg 0900 AMANDA Administration Furosemide 20 mg 12/10/19 09:00 12/12/19 08:51 Lasix SLOW IVP 20 mg DAILY AMANDA Administration Hydralazine HCl 50 mg 12/08/19 21:00 12/12/19 08:48 Apresoline PO Not Given TID AMANDA Hydralazine HCl 10 mg 12/08/19 18:24 12/12/19 11:45 Apresoline SLOW IVP 10 mg Q4H PRN Administration bp > 180/110 Ceftriaxone Sodium 1 gm/ 100 mls @ 200 mls/hr 12/10/19 11:00 12/12/19 10:30 Sodium Chloride IVPB 100 mls 1100 AMANDA Administration Dextrose/Sodium Chloride 1,000 mls @ 75 mls/hr 12/11/19 09:45 12/12/19 00:34 D5 1/2 Ns IV 1,000 mls .[id number] AMANDA Administration Isosorbide Mononitrate 30 mg 12/11/19 09:00 12/12/19 08:49 Imdur Er PO Not Given DAILY [facility] Labetalol HCl 10 mg 12/09/19 09:00 12/12/19 08:52 Normodyne SLOW IVP 10 mg Q6H AMANDA Administration Latanoprost 1 drop 12/08/19 21:00 12/11/19 20:47 Xalatan 0.005% Ophth Soln EA EYE 1 drop HS AMANDA Administration Levothyroxine Sodium 100 mcg 12/09/19 06:00 12/12/19 05:14 Synthroid PO Not Given 0600 [facility] Metoprolol Tartrate 100 mg 12/08/19 21:00 12/12/19 08:49 Lopressor PO Not Given BID AMANDA Sodium Chloride 10 ml 12/08/19 21:00 12/12/19 08:52 Flush - Normal Saline IVF 10 ml Q12HR AMANDA Administration Sodium Chloride 10 ml 12/08/19 18:21 12/09/19 00:25 Flush - Normal Saline IVF 10 ml PRN PRN Administration Saline Flush - Exam General Appearance: awake alert Neck: supple Heart: RRR Respiratory: normal chest expansion, no tachypnea Gastrointestinal: soft Neurological: cranial nerve grossly intact Hosp A/P (1) Delirium Code(s): R41.0 - DISORIENTATION, UNSPECIFIED Status: Acute (2) UTI (urinary tract infection) Status: Acute (3) Hypertensive emergency Code(s): I16.1 - HYPERTENSIVE EMERGENCY Status: Acute - Plan The patient is not taking her oral medications including oral antihypertensives. Her blood pressure is being controlled with IV hydralazine and labetalol. Confusion could be delirium related to UTI. CX positive for E.Coli. Continue IV ceftriaxone. PT,OT, and ST evaluation. KRISTAL due to dehydration and poor PO intake. Creatinine level improving with IV fluids. Recheck BMP in the morning.
[2019-12-12] MEDS: Haloperidol Lactate 5 MG/ML VIAL IM PRN ×2 (13:52→22:37)
[2019-12-12] MEDS: Latanoprost 0.005% Ophth Soln 2.5 ml Bottle EA EYE SCH (21:19)
[2019-12-12] MEDS: Atorvastatin Calcium 40 MG TAB PO SCH (21:20)
[2019-12-13] MEDS: Labetalol HCl 100 MG/20 ML VIAL SLOW IVP SCH ×4 (03:55→22:18)
[2019-12-13] MEDS: Dextrose 5 %-0.45 % NaCl 1,000 ML IV SCH (03:57)
[2019-12-13 05:16] LABS: Anion Gap 12 mmol/L (10-20); BUN (Urea Nitrogen) 17 mg/dL (9.8-20.1); Calc. Creatinine Clearance 49 mL/min (70-130); Calcium 10.7 mg/dL (7.8-10.44); Carbon Dioxide 25 mmol/L (23-31); Chloride 104 mmol/L (98-107); Estimated GFR-MDRD 52; Glucose 126 mg/dL (83-110); Potassium 3.2 mmol/L (3.5-5.1); Sodium 138 mmol/L (136-145)
[2019-12-13 05:40] LABS: Hemoglobin 12.9 g/dL (12.0-16.0); Mean Corpuscular HGB CONC 31.6 g/dL (32.0-36.0); Mean Corpuscular Hemoglobin 29.3 pg (27.0-31.0); Mean Corpuscular Volume 92.9 fL (78.0-98.0); Mean Platelet Volume 10.8 fL (7.4-10.4); Platelet Count 124 thou/uL (130-400); RBC Distribution Width 13.7 % (11.5-14.5); Red Blood Cell (RBC) Count 4.39 mill/uL (4.20-5.40); White Blood Cell (WBC) Count 4.6 thou/uL (4.8-10.8)
[2019-12-13 05:41] LABS: Eosinophils 1 % (0-10); Lymphocytes 28 % (21-51); MDiff Complete? YES; Monocytes 8 % (0-10); Neutrophil 63 % (42-75); Platelet Morphology Comment Appears Adequate; RBC Morphology Normal
[2019-12-13] MEDS: Levothyroxine Sodium 100 MCG TAB PO SCH (06:00)
[2019-12-13] MEDS: DorzolamidE/Timolol 2%/0.5% Ophth Soln 10 ml Bottle EA EYE SCH ×2 (08:55→22:11)
[2019-12-13] MEDS: Furosemide 20 MG/2 ML VIAL SLOW IVP SCH (08:55)
[2019-12-13] MEDS: Enoxaparin Sodium 30 MG/0.3 ML SYRINGE SC SCH (08:55)
[2019-12-13] MEDS: hydrALAZINE 25 MG TAB PO SCH ×3 (09:02→22:13)
[2019-12-13] MEDS: Amlodipine 10 MG TAB PO SCH (09:02)
[2019-12-13] MEDS: Aspirin Chewable 81 MG TAB PO SCH (09:02)
[2019-12-13] MEDS: Isosorbide Mononitrate (ER) 30 MG TAB PO SCH (09:03)
[2019-12-13] MEDS: Metoprolol Tartrate 100 MG TAB PO SCH ×2 (09:03→22:14)
[2019-12-13] MEDS: D5 0.9% NS w/ 20 mEq KCl 1,000 ML IV SCH ×2 (10:13→22:17)
[2019-12-13] MEDS: cefTRIAXone\\ROCEPHIN 1 GM in Sodium Chloride 0.9% 100 ML IVPB SCH (11:40)
[2019-12-13] MEDS: Haloperidol Lactate 5 MG/ML VIAL IM PRN (13:05)
--- NOTE | 2019-12-13 16:16 | PDOC.HOSPP ---
- Objective Vital Signs & Weight: Vital Signs (12 hours) Temp Pulse Pulse Pulse Resp BP BP 12/13/19 16:04 98.8 F 61 16 12/13/19 15:28 71 177/83 H 12/13/19 11:47 98.2 F 63 17 12/13/19 09:10 64 60 182/80 H 12/13/19 08:55 68 192/86 H 12/13/19 07:42 97.4 F L 75 18 BP BP Pulse Ox 12/13/19 16:04 177/83 H 96 12/13/19 15:28 12/13/19 11:47 146/89 H 97 12/13/19 09:10 130/74 12/13/19 08:55 12/13/19 07:42 178/80 H 99 Weight Admit Weight 183 lb Weight 183 lb 9 oz I&O: 12/12/19 12/13/19 12/14/19 06:59 06:59 06:59 Intake Total 800 Balance 800 Result Diagrams: 12/13/19 04:39 12/13/19 04:39 Hospitalist ROS - Medication Medications: Active Medications Generic Name Dose Route Start Last Admin Trade Name Freq PRN Reason Stop Dose Admin Acetaminophen 650 mg 12/08/19 21:03 12/09/19 00:16 Tylenol [place] 650 mg Q4H PRN Administration Headache/Fever or Pain Amlodipine Besylate 10 mg 12/11/19 09:00 12/13/19 09:02 Norvasc PO Not Given DAILY [facility] Aspirin 81 mg 12/09/19 09:00 12/13/19 09:02 Aspirin Chewable PO Not Given DAILY [facility] Atorvastatin Calcium 40 mg 12/08/19 21:00 12/12/19 21:20 Lipitor PO 40 mg HS AMANDA Administration Dorzolamide/Timolol 1 drop 12/08/19 21:00 12/13/19 08:55 Cosopt 2-0.5% Ophth Soln EA EYE 1 drop BID AMANDA Administration Enoxaparin Sodium 30 mg 12/09/19 09:00 12/13/19 08:55 Lovenox SC 30 mg 0900 AMANDA Administration Furosemide 20 mg 12/10/19 09:00 12/13/19 08:55 Lasix SLOW IVP 20 mg DAILY AMANDA Administration Haloperidol Lactate 5 mg 12/12/19 13:47 12/13/19 13:05 Haldol IM 5 mg Q4H PRN Administration Agitation Hydralazine HCl 50 mg 12/08/19 21:00 12/13/19 15:28 Apresoline PO Not Given TID AMANDA Hydralazine HCl 10 mg 12/08/19 18:24 12/12/19 11:45 Apresoline SLOW IVP 10 mg Q4H PRN Administration bp > 180/110 Ceftriaxone Sodium 1 gm/ 100 mls @ 200 mls/hr 12/10/19 11:00 12/13/19 11:40 Sodium Chloride IVPB 100 mls 1100 AMANDA Administration Potassium Chloride/Dextrose/Sod Cl 1,000 mls @ 100 mls/hr 12/13/19 09:15 10:13 D5 0.9% Ns W/ 20 Meq Kcl IV 1,000 mls .Q10H AMANDA Administration Isosorbide Mononitrate 30 mg 12/11/19 09:00 12/13/19 09:03 Imdur Er PO Not Given DAILY AMANDA Labetalol HCl 10 mg 12/09/19 09:00 12/13/19 15:28 Normodyne SLOW IVP 10 mg Q6H AMANDA Administration Latanoprost 1 drop 12/08/19 21:00 12/12/19 21:19 Xalatan 0.005% Ophth Soln EA EYE 1 drop HS AMANDA Administration Levothyroxine Sodium 100 mcg 12/09/19 06:00 12/13/19 06:00 Synthroid PO Not Given 0600 AMANDA Metoprolol Tartrate 100 mg 12/08/19 21:00 12/13/19 09:03 Lopressor PO Not Given BID AMANDA Sodium Chloride 10 ml 12/08/19 21:00 12/13/19 09:01 Flush - Normal Saline IVF 10 ml Q12HR AMANDA Administration Sodium Chloride 10 ml 12/08/19 18:21 12/09/19 00:25 Flush - Normal Saline IVF 10 ml PRN PRN Administration Saline Flush - Exam ENT: normocephalic atraumatic Neck: supple Respiratory: normal chest expansion, no tachypnea Gastrointestinal: soft Extremities: no cyanosis, no clubbing Neurological: cranial nerve grossly intact Hosp A/P (1) Delirium Code(s): R41.0 - DISORIENTATION, UNSPECIFIED Status: Acute (2) UTI (urinary tract infection) Status: Acute (3) Hypertensive emergency Code(s): I16.1 - HYPERTENSIVE EMERGENCY Status: Acute - Plan The patient is not taking her oral medications including oral antihypertensives. Her blood pressure is being controlled with IV hydralazine and labetalol. Confusion could be delirium related to UTI. CX positive for E.Coli. Continue IV ceftriaxone. PT,OT, and ST evaluation. KRISTAL due to dehydration and poor PO intake. Creatinine level improving. IVF rate increased.
[2019-12-13] MEDS: Atorvastatin Calcium 40 MG TAB PO SCH (22:13)
[2019-12-13] MEDS: Latanoprost 0.005% Ophth Soln 2.5 ml Bottle EA EYE SCH (22:14)
[2019-12-14] MEDS: Labetalol HCl 100 MG/20 ML VIAL SLOW IVP SCH ×4 (04:45→21:40)
[2019-12-14 05:09] LABS: Anion Gap 10 mmol/L (10-20); BUN (Urea Nitrogen) 13 mg/dL (9.8-20.1); Calc. Creatinine Clearance 54 mL/min (70-130); Calcium 10.6 mg/dL (7.8-10.44); Carbon Dioxide 26 mmol/L (23-31); Chloride 110 mmol/L (98-107); Estimated GFR-MDRD 58; Glucose 125 mg/dL (83-110); Potassium 3.4 mmol/L (3.5-5.1); Sodium 143 mmol/L (136-145)
[2019-12-14 05:10] LABS: Band 1 % (5-11); Eosinophils 5 % (0-10); Hemoglobin 12.9 g/dL (12.0-16.0); Lymphocytes 30 % (21-51); MDiff Complete? YES; Mean Corpuscular Hemoglobin 30.1 pg (27.0-31.0); Mean Corpuscular Volume 93.9 fL (78.0-98.0); Mean Platelet Volume 10.9 fL (7.4-10.4); Monocytes 10 % (0-10); Neutrophil 54 % (42-75); Nucleated RBC 1 % (0); Platelet Count 124 thou/uL (130-400); Platelet Morphology Comment Appears Decreased; RBC Distribution Width 13.8 % (11.5-14.5); Red Blood Cell (RBC) Count 4.29 mill/uL (4.20-5.40); White Blood Cell (WBC) Count 3.5 thou/uL (4.8-10.8)
[2019-12-14] MEDS: D5 0.9% NS w/ 20 mEq KCl 1,000 ML IV SCH ×2 (06:27→14:45)
[2019-12-14] MEDS: Levothyroxine Sodium 100 MCG TAB PO SCH (06:27)
[2019-12-14] MEDS: Furosemide 20 MG/2 ML VIAL SLOW IVP SCH (09:10)
[2019-12-14] MEDS: DorzolamidE/Timolol 2%/0.5% Ophth Soln 10 ml Bottle EA EYE SCH ×2 (09:10→21:42)
[2019-12-14] MEDS: Enoxaparin Sodium 30 MG/0.3 ML SYRINGE SC SCH (09:11)
[2019-12-14] MEDS: Aspirin Chewable 81 MG TAB PO SCH (09:25)
[2019-12-14] MEDS: hydrALAZINE 25 MG TAB PO SCH ×3 (09:25→21:40)
[2019-12-14] MEDS: Amlodipine 10 MG TAB PO SCH (09:25)
[2019-12-14] MEDS: Metoprolol Tartrate 100 MG TAB PO SCH ×2 (09:26→21:41)
[2019-12-14] MEDS: Isosorbide Mononitrate (ER) 30 MG TAB PO SCH (09:26)
--- NOTE | 2019-12-14 11:14 | CT ---
CT Head without IV contrast COMPARISON: 12/08/2019 HISTORY: Altered mental status TECHNIQUE: Axial CT imaging at 5 mm intervals from vertex through skull base without contrast FINDINGS: There is no evidence of an acute infarction, hemorrhage, mass effect, or midline shift. There is decr eased attenuation seen in the periventricular white matter which is nonspecific but likely attributable to chronic small vessel ischemic changes which have not progressed from prior exam. Ther e is mild cerebral volume loss. The ventricular system is normal in size, shape, and position for the degree of sulcal atrophy. Mucosal thickening is present in the right sphenoid sinus. Limited visualized mastoid air cells are c lear. Osseous structures appear intact. IMPRESSION: 1. No acute intracranial abnormality demonstrated. 2. Chronic small vessel ischemic changes and cerebral volume loss not significantly changed from prio r exam. 3. Sinus disease involving right sphenoid sinus.
[2019-12-14] MEDS: cefTRIAXone\\ROCEPHIN 1 GM in Sodium Chloride 0.9% 100 ML IVPB SCH (11:47)
[2019-12-14] MEDS: hydrALAZINE 20 MG/ML VIAL SLOW IVP PRN ×2 (11:49→18:00)
--- NOTE | 2019-12-14 13:16 | PQF ---
CLINICAL DOCUMENTATION IMPROVEMENT CLARIFICATION FORM: ICD-10 Updated PLEASE DO AN ADDENDUM TO THE PROGRESS NOTE WITH ANY DOCUMENTATION UPDATES OR ADDITIONS AND CARRY THROUGH TO DC SUMMARY. THANK YOU. DATE: 12/14/2019 ATTN: Dr. Haney Please exercise your independent, professional judgment in responding to the clarification form. Clinical indicators are provided on the bottom of this form for your review Please check appropriate box(s) to clarify if the following diagnosis has been ruled in or ruled out: NSTEMI TYPE II [ > ] Ruled in diagnosis [ ] Continue to treat [ ] Resolved [ ] Ruled out diagnosis [ ] Improving [ ] Cannot rule out diagnosis [ ] Other diagnosis [ ] Unable to determine In addition, please specify: Present on Admission (POA): [ >] Yes [ ] No [ ] Unable to determine For continuity of documentation, please document condition throughout progress notes and discharge summary. Thank You. CLINICAL INDICATORS - SIGNS / SYMPTOMS / LABS / RESULTS AND LOCATION IN MR H&P 12/07: Troponinemia most likely due to demand ischemia, result of grossly elevated blood pressure. 12/08 (Jeffrey) type 2 NSTEMI -troponin downtrending likely demand due to hypertensive emergency RISKS: H&P 12/07: A/P: 79 yo with a medical history of HTN, who presents with hypertensive emergency due to medication nonadherence. TREATMENT: 12/09 (Medina) Her blood pressure is being controlled with IV hydralazine and labetalol. Thank you, Joycelyn (This form is maintained as a part of the permanent medical record) 2014 [employer]. All Rights Reserved Joycelyn Zaragoza RN, BSN [email or web address]
--- NOTE | 2019-12-14 15:05 | PDOC.HOSPP ---
- Subjective Encounter Date: 12/14/19 Subjective: The patient still confused, refuses to eat, and appear to be sleepy this morning. - Objective Vital Signs & Weight: Vital Signs (12 hours) Temp Pulse Pulse Pulse Resp BP BP 12/14/19 13:47 60 143/63 H 12/14/19 12:57 61 12/14/19 12:00 98.4 F 71 17 12/14/19 11:49 61 189/80 H 12/14/19 10:00 61 12/14/19 09:35 71 12/14/19 09:25 61 190/89 H 12/14/19 09:10 61 190/89 H 12/14/19 09:05 12/14/19 09:00 97.5 F L 60 17 12/14/19 04:45 60 178/84 H 12/14/19 04:18 98.4 F 60 18 BP BP BP Pulse Ox 12/14/19 13:47 12/14/19 12:57 137/79 12/14/19 12:00 189/80 H 98 12/14/19 11:49 12/14/19 10:00 160/90 H 12/14/19 09:35 209/95 H 12/14/19 09:25 12/14/19 09:10 12/14/19 09:05 97 12/14/19 09:00 186/82 H 97 12/14/19 04:45 12/14/19 04:18 142/78 H 94 L Weight Admit Weight 183 lb Weight 183 lb 9 oz I&O: 12/13/19 12/14/19 12/15/19 06:59 06:59 06:59 Intake Total 800 2165 Balance 800 2165 Result Diagrams: 12/14/19 04:30 12/14/19 04:30 Hospitalist ROS - Medication Medications: Active Medications Generic Name Dose Route Start Last Admin Trade Name Freq PRN Reason Stop Dose Admin Acetaminophen 650 mg 12/08/19 21:03 12/09/19 00:16 Tylenol [place] 650 mg Q4H PRN Administration Headache/Fever or Pain Amlodipine Besylate 10 mg 12/11/19 09:00 12/14/19 09:25 Norvasc PO Not Given DAILY [facility] Aspirin 81 mg 12/09/19 09:00 12/14/19 09:25 Aspirin Chewable PO Not Given DAILY [facility] Atorvastatin Calcium 40 mg 12/08/19 21:00 12/13/19 22:13 Lipitor PO Not Given HS [facility] Dorzolamide/Timolol 1 drop 12/08/19 21:00 12/14/19 09:10 Cosopt 2-0.5% Ophth Soln EA EYE 1 drop BID AMANDA Administration Enoxaparin Sodium 30 mg 12/09/19 09:00 12/14/19 09:11 Lovenox SC 30 mg 0900 AMANDA Administration Hydralazine HCl 50 mg 12/08/19 21:00 12/14/19 09:25 Apresoline PO Not Given TID [facility] Hydralazine HCl 10 mg 12/14/19 10:36 12/14/19 11:49 Apresoline SLOW IVP 10 mg Q4H PRN Administration SBP>160 Ceftriaxone Sodium 1 gm/ 100 mls @ 200 mls/hr 12/10/19 11:00 12/14/19 11:47 Sodium Chloride IVPB 100 mls 1100 [facility] Administration Isosorbide Mononitrate 30 mg 12/11/19 09:00 12/14/19 09:26 Imdur Er PO Not Given DAILY [facility] Labetalol HCl 10 mg 12/09/19 09:00 12/14/19 09:10 Normodyne SLOW IVP 10 mg Q6H AMANDA Administration Latanoprost 1 drop 12/08/19 21:00 12/13/19 22:14 Xalatan 0.005% Ophth Soln EA EYE Not Given HS [facility] Levothyroxine Sodium 100 mcg 12/09/19 06:00 12/14/19 06:27 Synthroid PO Not Given 0600 [facility] Metoprolol Tartrate 100 mg 12/08/19 21:00 12/14/19 09:26 Lopressor PO Not Given BID AMANDA Sodium Chloride 10 ml 12/08/19 21:00 12/14/19 09:11 Flush - Normal Saline IVF 10 ml Q12HR AMANDA Administration Sodium Chloride 10 ml 12/08/19 18:21 12/09/19 00:25 Flush - Normal Saline IVF 10 ml PRN PRN Administration Saline Flush - Exam General Appearance: NAD ENT: normocephalic atraumatic Neck: supple, no JVD Respiratory: CTAB Gastrointestinal: soft, non-tender, non-distended, normal bowel sounds Neurological: cranial nerve grossly intact Hosp A/P (1) Delirium Code(s): R41.0 - DISORIENTATION, UNSPECIFIED Status: Acute (2) UTI (urinary tract infection) Status: Acute (3) Hypertensive emergency Code(s): I16.1 - HYPERTENSIVE EMERGENCY Status: Acute - Plan The patient is not taking her oral medications including oral antihypertensives. Her blood pressure is being controlled with IV hydralazine and labetalol. Confusion could be delirium related to UTI. CX positive for E.Coli. Completed 5 days of Ceftriaxone. No evidence of sepsis. KRISTAL due to dehydration and poor PO intake resolved with IVF. Up to chair today. Encourage PO intake. No acute abnormalities on CT head. Transfer to medical.
[2019-12-14] MEDS: Atorvastatin Calcium 40 MG TAB PO SCH (21:41)
[2019-12-14] MEDS: Latanoprost 0.005% Ophth Soln 2.5 ml Bottle EA EYE SCH (21:42)
[2019-12-15] MEDS: D5 0.9% NS w/ 20 mEq KCl 1,000 ML IV SCH ×2 (03:06→16:16)
[2019-12-15] MEDS: Labetalol HCl 100 MG/20 ML VIAL SLOW IVP SCH ×4 (03:08→20:28)
[2019-12-15 05:38] LABS: Eosinophils 2 % (0-10); Hemoglobin 12.5 g/dL (12.0-16.0); Lymphocytes 18 % (21-51); MDiff Complete? YES; Mean Corpuscular HGB CONC 31.2 g/dL (32.0-36.0); Mean Corpuscular Hemoglobin 29.3 pg (27.0-31.0); Mean Platelet Volume 11.7 fL (7.4-10.4); Monocytes 11 % (0-10); Neutrophil 69 % (42-75); Platelet Count 125 thou/uL (130-400); Platelet Morphology Comment Appears Adequate; RBC Distribution Width 13.7 % (11.5-14.5); RBC Morphology Normal; Red Blood Cell (RBC) Count 4.27 mill/uL (4.20-5.40); White Blood Cell (WBC) Count 4.2 thou/uL (4.8-10.8)
[2019-12-15 05:53] LABS: Anion Gap 12 mmol/L (10-20); BUN (Urea Nitrogen) 10 mg/dL (9.8-20.1); Calc. Creatinine Clearance 60 mL/min (70-130); Calcium 10.6 mg/dL (7.8-10.44); Carbon Dioxide 22 mmol/L (23-31); Chloride 112 mmol/L (98-107); Estimated GFR-MDRD 66; Glucose 118 mg/dL (83-110); Potassium 3.5 mmol/L (3.5-5.1); Sodium 142 mmol/L (136-145)
[2019-12-15] MEDS: Levothyroxine Sodium 100 MCG TAB PO SCH (06:11)
[2019-12-15] MEDS: Amlodipine 10 MG TAB PO SCH (09:14)
[2019-12-15] MEDS: DorzolamidE/Timolol 2%/0.5% Ophth Soln 10 ml Bottle EA EYE SCH ×2 (09:15→20:27)
[2019-12-15] MEDS: hydrALAZINE 25 MG TAB PO SCH ×3 (09:16→21:04)
[2019-12-15] MEDS: Enoxaparin Sodium 30 MG/0.3 ML SYRINGE SC SCH (09:16)
[2019-12-15] MEDS: Aspirin Chewable 81 MG TAB PO SCH (10:33)
[2019-12-15] MEDS: Isosorbide Mononitrate (ER) 30 MG TAB PO SCH (10:33)
[2019-12-15] MEDS: Metoprolol Tartrate 100 MG TAB PO SCH ×2 (10:34→21:04)
--- NOTE | 2019-12-15 10:41 | CON ---
DATE OF CONSULTATION: HISTORY OF PRESENT ILLNESS: Ms. Rooney is an 79-year-old female with medical history significant for type 2 diabetes mellitus, hypertension, and chronic kidney disease who presented to the [facility] on 12/08/2019 with acute- onset confusion. History is obtained by review of the records, nursing staff, and the patient's primary team. The patient lives on her own, but 3 days prior to admission, the son came to the patient's apartment and she was found to be extremely confused. He tried to get her to his apartment, but she resiated and also refused to take any medicines, and the confusion and agitation became progressively worse, so son brought her to the emergency room on 12/08/2019 for further evaluation. In the emergency room, the blood pressure was found to be elevated, and the CK and troponin were also mildly elevated. She had a head CT, which was negative. There, her condition mildly improved, but this morning, she became again extremely confused and unable to follow any commands. Neurology was consulted for altered mental status. Hospitalist ROS - Review of Systems ROS unobtainable: due to mental status - Medication Medications: Active Medications Generic Name Dose Route Start Last Admin Trade Name Freq PRN Reason Stop Dose Admin Acetaminophen 650 mg 12/08/19 21:03 12/09/19 00:16 Tylenol [place] 650 mg Q4H PRN Administration Headache/Fever or Pain Amlodipine Besylate 10 mg 12/11/19 09:00 12/15/19 09:14 Norvasc PO Not Given DAILY [facility] Aspirin 81 mg 12/09/19 09:00 12/15/19 10:33 Aspirin Chewable PO Not Given DAILY [facility] Atorvastatin Calcium 40 mg 12/08/19 21:00 12/14/19 21:41 Lipitor PO Not Given HS AMANDA Dorzolamide/Timolol 1 drop 12/08/19 21:00 12/15/19 09:15 Cosopt 2-0.5% Ophth Soln EA EYE 1 drop BID AMANDA Administration Enoxaparin Sodium 30 mg 12/09/19 09:00 12/15/19 09:16 Lovenox SC 30 mg 0900 AMANDA Administration Hydralazine HCl 50 mg 12/08/19 21:00 12/15/19 09:16 Apresoline PO Not Given TID AMANDA Hydralazine HCl 10 mg 12/14/19 10:36 12/14/19 18:00 Apresoline SLOW IVP 10 mg Q4H PRN Administration SBP>160 Potassium Chloride/Dextrose/Sod Cl 1,000 mls @ 70 mls/hr 12/14/19 10:34 12/14 03:06 D5 0.9% Ns W/ 20 Meq Kcl IV 1,000 mls .[id number] AMANDA Administration Isosorbide Mononitrate 30 mg 12/11/19 09:00 12/15/19 10:33 Imdur Er PO Not Given DAILY [facility] Labetalol HCl 10 mg 12/09/19 09:00 12/15/19 09:17 Normodyne SLOW IVP 10 mg Q6H AMANDA Administration Latanoprost 1 drop 12/08/19 21:00 12/14/19 21:42 Xalatan 0.005% Ophth Soln EA EYE Not Given HS AMANDA Levothyroxine Sodium 100 mcg 12/09/19 06:00 12/15/19 06:11 Synthroid PO 100 mcg 0600 AMANDA Administration Metoprolol Tartrate 100 mg 12/08/19 21:00 12/15/19 10:34 Lopressor PO Not Given BID AMANDA Sodium Chloride 10 ml 12/08/19 21:00 12/15/19 09:17 Flush - Normal Saline IVF 10 ml Q12HR AMANDA Administration Sodium Chloride 10 ml 12/08/19 18:21 12/09/19 00:25 Flush - Normal Saline IVF 10 ml PRN PRN Administration Saline Flush Hospitalist History - Past Medical History Source: old records Cardiac: reports: HTN, Hyperlipidemia, Other (PACEMAKER) Pulmonary: reports: no pertinent history 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 Gastrointestinal: reports: no pertinent history Heme/Onc: reports: no pertinent history Hepatobiliary: reports: no pertinent history Psych: reports: no pertinent history Musculoskeletal: reports: no pertinent history Infectious Disease: reports: no pertinent history ENT: reports: no pertinent history Endocrine: reports: Diabetes - Past Surgical History Other Surgical History: HYSTERECTOMY - Family History Family History: reports: hyperlipidemia, hypertension - Social History Smoking Status: Never smoker Alcohol: reports: None Drugs: reports: none Living Situation: Alone Hospitalist Results - Labs Result Diagrams: 12/15/19 04:54 12/15/19 04:54 Lab results: WBC 4.2 thou/uL (4.8-10.8) L 12/15/19 04:54 Hgb 12.5 g/dL (12.0-16.0) 12/15/19 04:54 Hct 40.2 % (36.0-47.0) 12/15/19 04:54 MCV 94.0 fL (78.0-98.0) 12/15/19 04:54 Plt Count 125 thou/uL (130-400) L 12/15/19 04:54 Neutrophils % 65.7 % (42.0-75.0) 12/08/19 14:18 Band Neuts % (Manual) 1 % (5-11) L 12/14/19 04:30 Sodium 142 mmol/L (136-145) 12/15/19 04:54 Potassium 3.5 mmol/L (3.5-5.1) 12/15/19 04:54 Chloride 112 mmol/L (98-107) H 12/15/19 04:54 Carbon Dioxide 22 mmol/L (23-31) L 12/15/19 04:54 BUN 10 mg/dL (9.8-20.1) 12/15/19 04:54 Creatinine 0.98 mg/dL (0.6-1.1) 12/15/19 04:54 Glucose 118 mg/dL (83-110) H 12/15/19 04:54 Lactic Acid 1.9 mmol/L (0.5-2.2) 12/08/19 14:18 Calcium 10.6 mg/dL (7.8-10.44) H 12/15/19 04:54 Total Bilirubin 0.7 mg/dL (0.2-1.2) 12/08/19 14:18 AST 18 U/L (5-34) 12/08/19 14:18 ALT 14 U/L (8-55) 12/08/19 14:18 Alkaline Phosphatase 87 U/L (40-110) 12/08/19 14:18 Ammonia 19 umol/L (18-72) 12/08/19 14:18 Creatine Kinase 272 U/L (29-168) H 12/08/19 14:18 CK-MB (CK-2) 4.8 ng/mL (0-6.6) 12/08/19 14:18 Troponin I 0.063 ng/mL (< 0.028) H 12/09/19 09:36 Serum Total Protein 7.5 g/dL (6.0-8.3) 12/08/19 14:18 Albumin 4.2 g/dL (3.4-4.8) 12/08/19 14:18 Lipase 38 U/L (8-78) 12/08/19 14:18 Urine Ketones Negative mg/dL (Negative) 12/08/19 14:36 Urine Blood 1+ (Negative) A 12/08/19 14:36 Urine Nitrite 2+ (Negative) A 12/08/19 14:36 Ur Leukocyte Esterase Negative Lisa/uL (Negative) 12/08/19 14:36 Urine RBC 0-3 HPF (0-3) 12/08/19 14:36 Urine WBC 0-3 HPF (0-3) 12/08/19 14:36 Ur Squamous Epith Cells 0-3 HPF (0-3) 12/08/19 14:36 Urine Bacteria 4+ HPF (None Seen) A 12/08/19 14:36 - Radiology Interpretation CT scan - head Additional Comment: NO ACUTE INTRACRANIAL PATHOLOGY - Exam General Appearance: ill appearing Eye: PERRL, anicteric sclera ENT: normocephalic atraumatic, no oropharyngeal lesions, moist mucosa Neck: supple, symmetric, no JVD, no thyromegaly, no lymphadenopathy Heart: RRR, no murmur, no gallops, no rubs, normal peripheral pulses Respiratory: CTAB, no wheezes, no rales, no ronchi, normal chest expansion Gastrointestinal: soft, non-tender, non-distended, normal bowel sounds, no palpable masses Extremities: no cyanosis, no clubbing Skin: normal turgor, no lesions, no rashes Psychiatric: normal affect, normal behavior, lethargic NEUROLOGICAL EXAMINATION: Mental status, the patient is alert, awake, does not follow commands, does not maintain any eye contact. Speech is clear, but unintelligible. Cranial nerves 2 through 12 are intact. Motor; muscle tone and bulk are normal. Moving all 4 extremities equally and symmetrically. Sensory; withdraws to pinprick bilaterally. Cerebellar unable to perform secondary to the patient's condition related to confusion and agitation. Reflexes are symmetric bilaterally. Babinski equivocal. Gait, deferred due to the patient's safety reasons. ASSESSMENT AND PLAN: An 79-year-old female consulted for altered mental status, which may be secondary to toxic metabolic etiology versus intracranial pathology versus seizures. 1. Recommend EEG to rule out seizures. 2. Repeat HCT if pacemaker not compatible with MRI Brain. 3. Neuro checks every 4 hours. 4. Continue home medications. 5. Continue medical management per prior routine. 6. Further recommendation depends on the results of the testing. We will continue to follow. Plan discussed with the nursing staff and the primary attending. Thank you for the consult. Job ID: [id number] [facility]
--- NOTE | 2019-12-15 11:39 | PDOC.HHP ---
Hospitalist ROS - Review of Systems ROS unobtainable: due to mental status - Medication Medications: Active Medications Generic Name Dose Route Start Last Admin Trade Name Freq PRN Reason Stop Dose Admin Acetaminophen 650 mg 12/08/19 21:03 12/09/19 00:16 Tylenol [place] 650 mg Q4H PRN Administration Headache/Fever or Pain Amlodipine Besylate 10 mg 12/11/19 09:00 12/15/19 09:14 Norvasc PO Not Given DAILY [facility] Aspirin 81 mg 12/09/19 09:00 12/15/19 10:33 Aspirin Chewable PO Not Given DAILY [facility] Atorvastatin Calcium 40 mg 12/08/19 21:00 12/14/19 21:41 Lipitor PO Not Given HS [facility] Dorzolamide/Timolol 1 drop 12/08/19 21:00 12/15/19 09:15 Cosopt 2-0.5% Ophth Soln EA EYE 1 drop BID AMANDA Administration Enoxaparin Sodium 30 mg 12/09/19 09:00 12/15/19 09:16 Lovenox SC 30 mg 0900 AMANDA Administration Hydralazine HCl 50 mg 12/08/19 21:00 12/15/19 09:16 Apresoline PO Not Given TID AMANDA Hydralazine HCl 10 mg 12/14/19 10:36 12/14/19 18:00 Apresoline SLOW IVP 10 mg Q4H PRN Administration SBP>160 Potassium Chloride/Dextrose/Sod Cl 1,000 mls @ 70 mls/hr 12/14/19 10:34 12/14 03:06 D5 0.9% Ns W/ 20 Meq Kcl IV 1,000 mls .[id number] AMANDA Administration Isosorbide Mononitrate 30 mg 12/11/19 09:00 12/15/19 10:33 Imdur Er PO Not Given DAILY [facility] Labetalol HCl 10 mg 12/09/19 09:00 12/15/19 09:17 Normodyne SLOW IVP 10 mg Q6H AMANDA Administration Latanoprost 1 drop 12/08/19 21:00 12/14/19 21:42 Xalatan 0.005% Ophth Soln EA EYE Not Given HS [facility] Levothyroxine Sodium 100 mcg 12/09/19 06:00 12/15/19 06:11 Synthroid PO 100 mcg 0600 AMANDA Administration Metoprolol Tartrate 100 mg 12/08/19 21:00 12/15/19 10:34 Lopressor PO Not Given BID AMANDA Sodium Chloride 10 ml 12/08/19 21:00 12/15/19 09:17 Flush - Normal Saline IVF 10 ml Q12HR AAMNDA Administration Sodium Chloride 10 ml 12/08/19 18:21 12/09/19 00:25 Flush - Normal Saline IVF 10 ml PRN PRN Administration Saline Flush Hospitalist History - Past Medical History Source: old records Cardiac: reports: HTN, Hyperlipidemia, Other (PACEMAKER) Pulmonary: reports: no pertinent history 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 Gastrointestinal: reports: no pertinent history Heme/Onc: reports: no pertinent history Hepatobiliary: reports: no pertinent history Psych: reports: no pertinent history Musculoskeletal: reports: no pertinent history Infectious Disease: reports: no pertinent history ENT: reports: no pertinent history Endocrine: reports: Diabetes - Past Surgical History Other Surgical History: HYSTERECTOMY - Family History Family History: reports: hyperlipidemia, hypertension - Social History Smoking Status: Never smoker Alcohol: reports: None Drugs: reports: none Living Situation: Alone - Exam General Appearance: ill appearing Eye: PERRL, anicteric sclera ENT: normocephalic atraumatic, no oropharyngeal lesions, moist mucosa Neck: supple, symmetric, no JVD, no thyromegaly, no lymphadenopathy Heart: RRR, no murmur, no gallops, no rubs, normal peripheral pulses Respiratory: CTAB, no wheezes, no rales, no ronchi, normal chest expansion Gastrointestinal: soft, non-tender, non-distended, normal bowel sounds, no palpable masses Extremities: no cyanosis, no clubbing Skin: normal turgor, no lesions, no rashes Psychiatric: normal affect, normal behavior, lethargic Hospitalist Results - Labs Result Diagrams: 12/15/19 04:54 12/15/19 04:54 Lab results: WBC 4.2 thou/uL (4.8-10.8) L 12/15/19 04:54 Hgb 12.5 g/dL (12.0-16.0) 12/15/19 04:54 Hct 40.2 % (36.0-47.0) 12/15/19 04:54 MCV 94.0 fL (78.0-98.0) 12/15/19 04:54 Plt Count 125 thou/uL (130-400) L 12/15/19 04:54 Neutrophils % 65.7 % (42.0-75.0) 12/08/19 14:18 Band Neuts % (Manual) 1 % (5-11) L 12/14/19 04:30 Sodium 142 mmol/L (136-145) 12/15/19 04:54 Potassium 3.5 mmol/L (3.5-5.1) 12/15/19 04:54 Chloride 112 mmol/L (98-107) H 12/15/19 04:54 Carbon Dioxide 22 mmol/L (23-31) L 12/15/19 04:54 BUN 10 mg/dL (9.8-20.1) 12/15/19 04:54 Creatinine 0.98 mg/dL (0.6-1.1) 12/15/19 04:54 Glucose 118 mg/dL (83-110) H 12/15/19 04:54 Lactic Acid 1.9 mmol/L (0.5-2.2) 12/08/19 14:18 Calcium 10.6 mg/dL (7.8-10.44) H 12/15/19 04:54 Total Bilirubin 0.7 mg/dL (0.2-1.2) 12/08/19 14:18 AST 18 U/L (5-34) 12/08/19 14:18 ALT 14 U/L (8-55) 12/08/19 14:18 Alkaline Phosphatase 87 U/L (40-110) 12/08/19 14:18 Ammonia 19 umol/L (18-72) 12/08/19 14:18 Creatine Kinase 272 U/L (29-168) H 12/08/19 14:18 CK-MB (CK-2) 4.8 ng/mL (0-6.6) 12/08/19 14:18 Troponin I 0.063 ng/mL (< 0.028) H 12/09/19 09:36 Serum Total Protein 7.5 g/dL (6.0-8.3) 12/08/19 14:18 Albumin 4.2 g/dL (3.4-4.8) 12/08/19 14:18 Lipase 38 U/L (8-78) 12/08/19 14:18 Urine Ketones Negative mg/dL (Negative) 12/08/19 14:36 Urine Blood 1+ (Negative) A 12/08/19 14:36 Urine Nitrite 2+ (Negative) A 12/08/19 14:36 Ur Leukocyte Esterase Negative Lisa/uL (Negative) 12/08/19 14:36 Urine RBC 0-3 HPF (0-3) 12/08/19 14:36 Urine WBC 0-3 HPF (0-3) 12/08/19 14:36 Ur Squamous Epith Cells 0-3 HPF (0-3) 12/08/19 14:36 Urine Bacteria 4+ HPF (None Seen) A 12/08/19 14:36 - Radiology Interpretation CT scan - head Additional Comment: NO ACUTE INTRACRANIAL PATHOLOGY
[2019-12-15] MEDS: hydrALAZINE 20 MG/ML VIAL SLOW IVP PRN (13:26)
--- NOTE | 2019-12-15 15:12 | EEG ---
Referring Physician: JOE EEG # [id number] TEST TYPE: ROUTINE PORTABLE INPATIENT REPORT: This EEG was performed using 24 channel [employer] video digital EEG machine with 24 disc electrodes. This is a routine video EEG recording. BACKGROUND: The posterior background rhythm was not observed. HYPERVENTILATION: Not performed. PHOTIC STIMULATION: No significant response seen with photic stimulation. SLEEP: No stage change was observed. EEG DIAGNOSIS: 1.) Irregular theta activity seen during the recording. 2.) Absence of posterior background rhythm. CLINICAL INTERPRETATION: THIS EEG IS CONSISTENT WITH MODERATE GENERALIZED NONSPECIFIC CEREBRAL DYSFUNCTION. NO ICTAL OR INTERICTAL EPILEPTIFORM ABNORMALITIES SEEN DURING THE RECORDING. Chemistry Instructor: DAVID Impersonator Character: EEG.MS [email or web address]
[2019-12-15] MEDS: Latanoprost 0.005% Ophth Soln 2.5 ml Bottle EA EYE SCH (20:27)
[2019-12-15] MEDS: Atorvastatin Calcium 40 MG TAB PO SCH (21:04)
[2019-12-16] MEDS: hydrALAZINE 20 MG/ML VIAL SLOW IVP PRN (00:38)
[2019-12-16] MEDS: Labetalol HCl 100 MG/20 ML VIAL SLOW IVP SCH ×2 (03:24→09:54)
[2019-12-16] MEDS: D5 0.9% NS w/ 20 mEq KCl 1,000 ML IV SCH ×2 (05:06→20:26)
[2019-12-16 05:52] LABS: Anion Gap 12 mmol/L (10-20); BUN (Urea Nitrogen) 7 mg/dL (9.8-20.1); Calc. Creatinine Clearance 63 mL/min (70-130); Calcium 10.1 mg/dL (7.8-10.44); Carbon Dioxide 22 mmol/L (23-31); Chloride 111 mmol/L (98-107); Estimated GFR-MDRD 73; Glucose 118 mg/dL (83-110); Potassium 3.4 mmol/L (3.5-5.1); Sodium 142 mmol/L (136-145)
[2019-12-16 06:20] LABS: Eosinophils 5 % (0-10); Hemoglobin 12.5 g/dL (12.0-16.0); Large Platelets SLIGHT; Lymphocytes 36 % (21-51); MDiff Complete? YES; Mean Corpuscular HGB CONC 30.4 g/dL (32.0-36.0); Mean Corpuscular Hemoglobin 28.4 pg (27.0-31.0); Mean Corpuscular Volume 93.3 fL (78.0-98.0); Mean Platelet Volume 12.1 fL (7.4-10.4); Monocytes 11 % (0-10); Neutrophil 48 % (42-75); Platelet Count 127 thou/uL (130-400); RBC Distribution Width 13.7 % (11.5-14.5); Red Blood Cell (RBC) Count 4.41 mill/uL (4.20-5.40); Schistocytes SLIGHT = 2-5 cells (100X) (0-1/hpf); White Blood Cell (WBC) Count 5.2 thou/uL (4.8-10.8)
[2019-12-16] MEDS: Levothyroxine Sodium 100 MCG TAB PO SCH (06:20)
[2019-12-16] MEDS: Aspirin Chewable 81 MG TAB PO SCH (09:29)
[2019-12-16] MEDS: hydrALAZINE 25 MG TAB PO SCH ×3 (09:29→20:26)
[2019-12-16] MEDS: Amlodipine 10 MG TAB PO SCH (09:29)
[2019-12-16] MEDS: Metoprolol Tartrate 100 MG TAB PO SCH ×2 (09:30→20:26)
[2019-12-16] MEDS: Isosorbide Mononitrate (ER) 30 MG TAB PO SCH (09:30)
[2019-12-16] MEDS: Enoxaparin Sodium 30 MG/0.3 ML SYRINGE SC SCH (09:52)
[2019-12-16] MEDS: DorzolamidE/Timolol 2%/0.5% Ophth Soln 10 ml Bottle EA EYE SCH ×2 (09:52→20:27)
--- NOTE | 2019-12-16 10:44 | PDOC.HOSPP ---
- Subjective Encounter Date: 12/16/19 Subjective: The patient still lethargic and refuses to eat - Objective Vital Signs & Weight: Vital Signs (12 hours) Temp Pulse Resp BP BP Pulse Ox 12/16/19 09:54 60 119/72 12/16/19 09:29 60 12/16/19 08:30 94 L 12/16/19 07:21 97.8 F 60 20 122/76 94 L 12/16/19 04:58 98.1 F 79 20 146/77 H 98 12/16/19 03:24 63 12/16/19 00:38 62 12/16/19 00:00 99.1 F 61 20 160/86 H 96 Weight Admit Weight 183 lb Weight 177 lb 11.2 oz I&O: 12/15/19 12/16/19 12/17/19 06:59 06:59 06:59 Intake Total 1860 1705 Output Total 200 Balance 1860 1505 Result Diagrams: 12/16/19 05:27 12/16/19 05:27 Hospitalist ROS - Medication Medications: Active Medications Generic Name Dose Route Start Last Admin Trade Name Freq PRN Reason Stop Dose Admin Acetaminophen 650 mg 12/08/19 21:03 12/09/19 00:16 Tylenol [place] 650 mg Q4H PRN Administration Headache/Fever or Pain Amlodipine Besylate 10 mg 12/11/19 09:00 12/16/19 09:29 Norvasc PO Not Given DAILY [facility] Aspirin 81 mg 12/09/19 09:00 12/16/19 09:29 Aspirin Chewable PO Not Given DAILY [facility] Atorvastatin Calcium 40 mg 12/08/19 21:00 12/15/19 21:04 Lipitor PO Not Given HS [facility] Dorzolamide/Timolol 1 drop 12/08/19 21:00 12/16/19 09:52 Cosopt 2-0.5% Ophth Soln EA EYE 1 drop BID AMANDA Administration Enoxaparin Sodium 30 mg 12/09/19 09:00 12/16/19 09:52 Lovenox SC 30 mg 0900 AMANDA Administration Hydralazine HCl 50 mg 12/08/19 21:00 12/16/19 09:29 Apresoline PO Not Given TID AMANDA Hydralazine HCl 10 mg 12/14/19 10:36 12/16/19 00:38 Apresoline SLOW IVP 10 mg Q4H PRN Administration SBP>160 Potassium Chloride/Dextrose/Sod Cl 1,000 mls @ 70 mls/hr 12/14/19 10:34 12/15 05:06 D5 0.9% Ns W/ 20 Meq Kcl IV 1,000 mls .[id number] AMANDA Administration Isosorbide Mononitrate 30 mg 12/11/19 09:00 12/16/19 09:30 Imdur Er PO Not Given DAILY [facility] Latanoprost 1 drop 12/08/19 21:00 12/15/19 20:27 Xalatan 0.005% Ophth Soln EA EYE 1 drop HS AMANDA Administration Levothyroxine Sodium 100 mcg 12/09/19 06:00 12/16/19 06:20 Synthroid PO 100 mcg 0600 AMANDA Administration Metoprolol Tartrate 100 mg 12/08/19 21:00 12/16/19 09:30 Lopressor PO Not Given BID [facility]ANDA Sodium Chloride 10 ml 12/08/19 21:00 12/16/19 09:31 Flush - Normal Saline IVF Not Given Q12HR AMANDA Sodium Chloride 10 ml 12/08/19 18:21 12/09/19 00:25 Flush - Normal Saline IVF 10 ml PRN PRN Administration Saline Flush - Exam ENT: normocephalic atraumatic Neck: supple Heart: RRR Respiratory: CTAB Gastrointestinal: soft, non-tender, non-distended Neurological: cranial nerve grossly intact Neurological - other findings: Able to move her extremities Hosp A/P (1) Delirium Code(s): R41.0 - DISORIENTATION, UNSPECIFIED Status: Acute (2) UTI (urinary tract infection) Status: Acute (3) Hypertensive emergency Code(s): I16.1 - HYPERTENSIVE EMERGENCY Status: Acute - Plan The patient is not taking her oral medications including oral antihypertensives. Her blood pressure is being controlled with IV hydralazine and labetalol. Confusion persisted despite treatment of UTI. Completed 5 days of Ceftriaxone. No evidence of sepsis. KRISTAL due to dehydration and poor PO intake resolved with IVF. No acute abnormalities on CT head. EEG shows slowing but no seizure activity. Suspect CVA. MRI on Thursday as radiology will need to contact pacemaker company. If positive for CVA and continues to not eat or take medications, family open for feeding tube.
[2019-12-16 10:58] VITALS: BMI 32.5
[2019-12-16] MEDS: Atorvastatin Calcium 40 MG TAB PO SCH (20:26)
[2019-12-16] MEDS: Latanoprost 0.005% Ophth Soln 2.5 ml Bottle EA EYE SCH (20:27)
[2019-12-17] MEDS: hydrALAZINE 20 MG/ML VIAL SLOW IVP PRN ×5 (01:36→20:52)
[2019-12-17] MEDS: Levothyroxine Sodium 100 MCG TAB PO SCH (05:24)
[2019-12-17] MEDS: Labetalol HCl 100 MG/20 ML VIAL SLOW IVP PRN (05:38)
[2019-12-17 05:39] LABS: Anion Gap 12 mmol/L (10-20); BUN (Urea Nitrogen) 11 mg/dL (9.8-20.1); Calc. Creatinine Clearance 56 mL/min (70-130); Calcium 10.4 mg/dL (7.8-10.44); Carbon Dioxide 21 mmol/L (23-31); Chloride 112 mmol/L (98-107); Estimated GFR-MDRD 63; Glucose 112 mg/dL (83-110); Potassium 3.6 mmol/L (3.5-5.1); Sodium 141 mmol/L (136-145)
[2019-12-17 06:08] LABS: Hemoglobin 12.8 g/dL (12.0-16.0); Mean Corpuscular HGB CONC 30.3 g/dL (32.0-36.0); Mean Corpuscular Hemoglobin 28.5 pg (27.0-31.0); Mean Corpuscular Volume 94.3 fL (78.0-98.0); RBC Distribution Width 13.7 % (11.5-14.5); Red Blood Cell (RBC) Count 4.49 mill/uL (4.20-5.40); White Blood Cell (WBC) Count 5.1 thou/uL (4.8-10.8)
[2019-12-17 06:16] LABS: Band 3 % (5-11); Eosinophils 3 % (0-10); Large Platelets SLIGHT; Lymphocytes 34 % (21-51); MDiff Complete? YES; Mean Platelet Volume 12.1 fL (7.4-10.4); Monocytes 7 % (0-10); Neutrophil 52 % (42-75); Platelet Count 141 thou/uL (130-400); Platelet Morphology Comment Appears Adequate
[2019-12-17] MEDS: Enoxaparin Sodium 30 MG/0.3 ML SYRINGE SC SCH (08:17)
[2019-12-17] MEDS: DorzolamidE/Timolol 2%/0.5% Ophth Soln 10 ml Bottle EA EYE SCH ×2 (08:17→20:49)
[2019-12-17] MEDS: D5 0.9% NS w/ 20 mEq KCl 1,000 ML IV SCH ×2 (10:05→22:37)
[2019-12-17] MEDS: Isosorbide Mononitrate (ER) 30 MG TAB PO SCH (10:52)
[2019-12-17] MEDS: Amlodipine 10 MG TAB PO SCH (10:52)
[2019-12-17] MEDS: Metoprolol Tartrate 100 MG TAB PO SCH ×2 (10:53→20:31)
[2019-12-17] MEDS: hydrALAZINE 25 MG TAB PO SCH ×3 (10:53→20:31)
[2019-12-17] MEDS: Aspirin Chewable 81 MG TAB PO SCH (10:53)
--- NOTE | 2019-12-17 12:50 | PDOC.HOSPP ---
- Subjective Encounter Date: 12/17/19 Encounter Time: 12:48 Subjective: Patient is very lethargic. Hardly able to keep her eyes open for a few minutes per son and nursing staff. Yesterday she was eating, feeding herself, talking, could recognize her two sons. At baseline patient is very independent and lives by herself . Patient' sson states on Thursday she had an episode of aphasia, she was mumbling but had intact comprehension. never had weakness or numbness of extremities Son states patient has been moving all extremities, was scratching her head with her right hand earlier - Objective Vital Signs & Weight: Vital Signs (12 hours) Temp Pulse Pulse Resp BP BP BP 12/17/19 12:08 60 171/75 H 12/17/19 11:00 98.6 F 63 16 12/17/19 10:15 63 146/78 H 12/17/19 08:18 12/17/19 06:59 98.8 F 60 18 150/56 H 12/17/19 06:42 171/83 H 12/17/19 06:20 65 186/100 H 12/17/19 05:38 65 12/17/19 05:30 98.6 F 64 18 195/98 H 12/17/19 01:36 61 Pulse Ox 12/17/19 12:08 12/17/19 11:00 97 12/17/19 10:15 12/17/19 08:18 97 12/17/19 06:59 97 12/17/19 06:42 12/17/19 06:20 12/17/19 05:38 12/17/19 05:30 96 12/17/19 01:36 Weight Admit Weight 183 lb Weight 177 lb 11.2 oz I&O: 12/16/19 12/17/19 12/18/19 06:59 06:59 06:59 Intake Total 1705 1410 Output Total 200 550 Balance 1505 860 Result Diagrams: 12/17/19 05:11 12/17/19 05:11 Hospitalist ROS - Review of Systems ROS unobtainable: due to mental status - Medication Medications: Active Medications Generic Name Dose Route Start Last Admin Trade Name Freq PRN Reason Stop Dose Admin Acetaminophen 650 mg 12/08/19 21:03 12/09/19 00:16 Tylenol [place] 650 mg Q4H PRN Administration Headache/Fever or Pain Amlodipine Besylate 10 mg 12/11/19 09:00 12/17/19 10:52 Norvasc PO Not Given DAILY [facility] Aspirin 81 mg 12/09/19 09:00 12/17/19 10:53 Aspirin Chewable PO Not Given DAILY [facility] Atorvastatin Calcium 40 mg 12/08/19 21:00 12/16/19 20:26 Lipitor PO 40 mg HS AMANDA Administration Dorzolamide/Timolol 1 drop 12/08/19 21:00 12/17/19 08:17 Cosopt 2-0.5% Ophth Soln EA EYE 1 drop BID AMANDA Administration Enoxaparin Sodium 30 mg 12/09/19 09:00 12/17/19 08:17 Lovenox SC 30 mg 0900 AMANDA Administration Hydralazine HCl 50 mg 12/08/19 21:00 12/17/19 10:53 Apresoline PO Not Given TID AMANDA Hydralazine HCl 10 mg 12/14/19 10:36 12/17/19 12:08 Apresoline SLOW IVP 10 mg Q4H PRN Administration SBP>160 Potassium Chloride/Dextrose/Sod Cl 1,000 mls @ 70 mls/hr 12/14/19 10:34 12/16 10:05 D5 0.9% Ns W/ 20 Meq Kcl IV 1,000 mls .[id number] AMANDA Administration Isosorbide Mononitrate 30 mg 12/11/19 09:00 12/17/19 10:52 Imdur Er PO Not Given DAILY [facility] Labetalol HCl 10 mg 12/16/19 10:39 12/17/19 05:38 Normodyne SLOW IVP 10 mg Q6H PRN Administration SBP Greater Than 170 Latanoprost 1 drop 12/08/19 21:00 12/16/19 20:27 Xalatan 0.005% Ophth Soln EA EYE 1 drop HS AMANDA Administration Levothyroxine Sodium 100 mcg 12/09/19 06:00 12/17/19 05:24 Synthroid PO 100 mcg 0600 AMANDA Administration Metoprolol Tartrate 100 mg 12/08/19 21:00 12/17/19 10:53 Lopressor PO Not Given BID [facility] Sodium Chloride 10 ml 12/08/19 21:00 12/17/19 08:18 Flush - Normal Saline IVF Not Given Q12HR AMANDA Sodium Chloride 10 ml 12/08/19 18:21 12/09/19 00:25 Flush - Normal Saline IVF 10 ml PRN PRN Administration Saline Flush - Exam General Appearance: NAD General - other findings: lethargic. Obese. Takes shallow breaths Eye: PERRL, anicteric sclera Eye - other findings: resists eye opening ENT: normocephalic atraumatic, no oropharyngeal lesions, dry oral mucosa Neck: supple, no JVD Heart: RRR, no murmur, no gallops, no rubs Respiratory: CTAB, no wheezes, no rales, no ronchi Gastrointestinal: soft, non-tender, non-distended, normal bowel sounds Extremities: no cyanosis, no clubbing, no edema Skin: normal turgor, no lesions, no rashes Neurological: cranial nerve grossly intact, normal sensation to touch, no focal deficits, no new deficit Neurological - other findings: withdraws to painful stimuli upon pinching Musculoskeletal: normal tone, normal strength, no muscle wasting Psychiatric: normal affect, normal behavior, lethargic Hosp A/P - Plan Chest Xray 12/07: no acute process CT head 12/07: small vessel disease CT head 12/13: no acute disease This is an 79 year old female who presented with confusion and agitation, was admitted for hypertensive encephalopathy. She is also s/p treatment for UTi Acute encephalopathy - poss stroke vs LEONEL? - CT brain showed no acute stroke. MRI brain pending, will get it on Thursday - she is sp IV ceftriaxone for five days for E coli UTI - will check VBG to assess for hypercapnea - recheck TSH. Patient refused her levothyroxine initially but got it the last three days - continue aspirin and statin Hypertension - continue amlodipine, hydralazine, metoprolol Hypothyroidism - levothyroxine DVT prophylaxis: lovenox Code status: full code
[2019-12-17 13:11] LABS: Actual Bicarbonate (HCO3v) 24 mEq/L (22-28); Base Excess -1.2 mEq/L (-2.0 to +3.0); Calcium, Ionized 1.25 mmol/L (1.16-1.32); Chloride (ABG LAB) 108 mmol/L (98-106); Hemoglobin (Hb) 13.8 g/dL (11.7-16.1); Potassium - ABG Lab 3.62 mmol/L (3.70-5.30); Sodium 141.6 mmol/L (133-146); pH (venous) 7.36 (7.32-7.43)
[2019-12-17] MEDS: Latanoprost 0.005% Ophth Soln 2.5 ml Bottle EA EYE SCH (20:33)
[2019-12-17] MEDS: Atorvastatin Calcium 40 MG TAB PO SCH (20:51)
[2019-12-18] MEDS: Levothyroxine Sodium 100 MCG TAB PO SCH (05:21)
[2019-12-18 05:32] LABS: Hemoglobin 13.3 g/dL (12.0-16.0); Mean Corpuscular HGB CONC 30.3 g/dL (32.0-36.0); Mean Corpuscular Hemoglobin 28.6 pg (27.0-31.0); Mean Corpuscular Volume 94.5 fL (78.0-98.0); Mean Platelet Volume 12.2 fL (7.4-10.4); Platelet Count 134 thou/uL (130-400); RBC Distribution Width 13.7 % (11.5-14.5); Red Blood Cell (RBC) Count 4.66 mill/uL (4.20-5.40); White Blood Cell (WBC) Count 5.9 thou/uL (4.8-10.8)
[2019-12-18 05:47] LABS: Anion Gap 12 mmol/L (10-20); BUN (Urea Nitrogen) 9 mg/dL (9.8-20.1); Calc. Creatinine Clearance 57 mL/min (70-130); Calcium 10.2 mg/dL (7.8-10.44); Carbon Dioxide 21 mmol/L (23-31); Chloride 109 mmol/L (98-107); Estimated GFR-MDRD 64; Glucose 129 mg/dL (83-110); Potassium 3.9 mmol/L (3.5-5.1); Sodium 138 mmol/L (136-145)
[2019-12-18 05:52] LABS: Eosinophils 1 % (0-10); Large Platelets SLIGHT; Lymphocytes 25 % (21-51); MDiff Complete? YES; Monocytes 16 % (0-10); Neutrophil 58 % (42-75); Platelet Morphology Comment Appears Adequate; Schistocytes SLIGHT = 2-5 cells (100X) (0-1/hpf)
[2019-12-18] MEDS: hydrALAZINE 20 MG/ML VIAL SLOW IVP PRN (08:44)
[2019-12-18] MEDS: Enoxaparin Sodium 30 MG/0.3 ML SYRINGE SC SCH (08:50)
[2019-12-18] MEDS: DorzolamidE/Timolol 2%/0.5% Ophth Soln 10 ml Bottle EA EYE SCH ×2 (10:00→22:00)
[2019-12-18] MEDS: Amlodipine 10 MG TAB PO SCH (10:27)
[2019-12-18] MEDS: hydrALAZINE 25 MG TAB PO SCH ×3 (10:28→20:56)
[2019-12-18] MEDS: Aspirin Chewable 81 MG TAB PO SCH (10:28)
[2019-12-18] MEDS: Metoprolol Tartrate 100 MG TAB PO SCH ×2 (10:28→20:56)
[2019-12-18] MEDS: Isosorbide Mononitrate (ER) 30 MG TAB PO SCH (10:28)
[2019-12-18] MEDS: D5 0.9% NS w/ 20 mEq KCl 1,000 ML IV SCH ×2 (11:58→14:23)
--- NOTE | 2019-12-18 14:44 | PDOC.HOSPP ---
- Subjective Encounter Date: 12/18/19 Encounter Time: 10:00 Subjective: The patient is still drowsy. She does open left eye to sternal rub. Per speech therapist she was able to answer that she was in the hospital and they were able to upgrade her diet to mechanical soft. Son is planning on bringing her dentures - Objective Vital Signs & Weight: Vital Signs (12 hours) Temp Pulse Resp BP BP Pulse Ox 12/18/19 11:15 97.8 F 81 17 138/81 97 12/18/19 10:28 59 L 12/18/19 10:27 59 L 12/18/19 08:44 59 L 12/18/19 08:40 98 12/18/19 07:02 97.7 F 59 L 17 187/77 H 98 12/18/19 03:55 97.8 F 59 L 18 140/85 95 Weight Admit Weight 183 lb Weight 177 lb 11.2 oz I&O: 12/17/19 12/18/19 12/19/19 06:59 06:59 06:59 Intake Total 1410 1850 Output Total 550 1050 Balance 860 800 Result Diagrams: 12/18/19 05:09 12/18/19 05:08 Hospitalist ROS - Review of Systems Constitutional: denies: fever, chills Gastrointestinal: denies: nausea, vomiting Musculoskeletal: denies: neck pain, shoulder pain - Medication Medications: Active Medications Generic Name Dose Route Start Last Admin Trade Name Freq PRN Reason Stop Dose Admin Acetaminophen 650 mg 12/08/19 21:03 12/09/19 00:16 Tylenol [place] 650 mg Q4H PRN Administration Headache/Fever or Pain Amlodipine Besylate 10 mg 12/11/19 09:00 12/18/19 10:27 Norvasc PO Not Given DAILY [facility] Aspirin 81 mg 12/09/19 09:00 12/18/19 10:28 Aspirin Chewable PO Not Given DAILY [facility] Atorvastatin Calcium 40 mg 12/08/19 21:00 12/17/19 20:51 Lipitor PO Not Given HS [facility] Dorzolamide/Timolol 1 drop 12/08/19 21:00 12/18/19 10:00 Cosopt 2-0.5% Ophth Soln EA EYE 1 drop BID AMANDA Administration Enoxaparin Sodium 30 mg 12/09/19 09:00 12/18/19 08:50 Lovenox SC 30 mg 0900 AMANDA Administration Hydralazine HCl 50 mg 12/08/19 21:00 12/18/19 10:28 Apresoline PO Not Given TID AMANDA Hydralazine HCl 10 mg 12/14/19 10:36 12/18/19 08:44 Apresoline SLOW IVP 10 mg Q4H PRN Administration SBP>160 Potassium Chloride/Dextrose/Sod Cl 1,000 mls @ 70 mls/hr 12/14/19 10:34 12/17 14:23 D5 0.9% Ns W/ 20 Meq Kcl IV Not Given .[id number] AMANDA Isosorbide Mononitrate 30 mg 12/11/19 09:00 12/18/19 10:28 Imdur Er PO Not Given DAILY [facility] Labetalol HCl 10 mg 12/16/19 10:39 12/17/19 05:38 Normodyne SLOW IVP 10 mg Q6H PRN Administration SBP Greater Than 170 Latanoprost 1 drop 12/08/19 21:00 12/17/19 20:33 Xalatan 0.005% Ophth Soln EA EYE 1 drop HS AMANDA Administration Levothyroxine Sodium 100 mcg 12/09/19 06:00 12/18/19 05:21 Synthroid PO Not Given 0600 [facility] Metoprolol Tartrate 100 mg 12/08/19 21:00 12/18/19 10:28 Lopressor PO Not Given BID [facility] Sodium Chloride 10 ml 12/08/19 21:00 12/18/19 10:29 Flush - Normal Saline IVF 10 ml Q12HR AMANDA Administration Sodium Chloride 10 ml 12/08/19 18:21 12/09/19 00:25 Flush - Normal Saline IVF 10 ml PRN PRN Administration Saline Flush - Exam General Appearance: NAD General - other findings: morbidly obese. Drowsy Eye: PERRL, anicteric sclera ENT: normocephalic atraumatic, no oropharyngeal lesions Neck: no JVD Heart: RRR, no murmur, no gallops, no rubs Respiratory: CTAB, no wheezes, no rales, no ronchi Gastrointestinal: soft, non-tender, non-distended, normal bowel sounds Extremities: no edema Skin: normal turgor, no lesions. negative: no rashes Hosp A/P - Plan Chest Xray 12/07: no acute process CT head 12/07: small vessel disease CT head 12/13: no acute disease This is an 79 year old female who presented with confusion and agitation, was admitted for hypertensive encephalopathy. She is also s/p treatment for UTi Acute encephalopathy - poss stroke - CT brain showed no acute stroke. MRI brain pending, will get it on Thursday - she is sp IV ceftriaxone for five days for E coli UTI - vBG was unremarkable - TSh elevated, levothyroxine was resumed. Patient refused it for few days on admission - continue aspirin and statin Hypertension - continue amlodipine, hydralazine, metoprolol Hypothyroidism - levothyroxine DVT prophylaxis: lovenox Code status: full code
[2019-12-18] MEDS: Atorvastatin Calcium 40 MG TAB PO SCH (20:56)
[2019-12-18] MEDS: Latanoprost 0.005% Ophth Soln 2.5 ml Bottle EA EYE SCH (21:56)
[2019-12-19] MEDS: D5 0.9% NS w/ 20 mEq KCl 1,000 ML IV SCH ×2 (01:01→16:21)
[2019-12-19] MEDS: hydrALAZINE 20 MG/ML VIAL SLOW IVP PRN ×2 (05:25→17:47)
[2019-12-19] MEDS: Levothyroxine Sodium 100 MCG TAB PO SCH (05:27)
[2019-12-19 06:03] LABS: Anion Gap 12 mmol/L (10-20); BUN (Urea Nitrogen) 8 mg/dL (9.8-20.1); Calc. Creatinine Clearance 66 mL/min (70-130); Calcium 10.1 mg/dL (7.8-10.44); Carbon Dioxide 19 mmol/L (23-31); Chloride 110 mmol/L (98-107); Estimated GFR-MDRD 76; Glucose 103 mg/dL (83-110); Sodium 137 mmol/L (136-145)
[2019-12-19 06:58] LABS: Band 1 % (5-11); Eosinophils 3 % (0-10); Hemoglobin 13.1 g/dL (12.0-16.0); Lymphocytes 31 % (21-51); MDiff Complete? YES; Mean Corpuscular HGB CONC 31.9 g/dL (32.0-36.0); Mean Corpuscular Hemoglobin 29.6 pg (27.0-31.0); Mean Platelet Volume 11.8 fL (7.4-10.4); Monocytes 7 % (0-10); Neutrophil 56 % (42-75); Platelet Count 127 thou/uL (130-400); Platelet Morphology Comment Appears Adequate; RBC Distribution Width 13.5 % (11.5-14.5); Red Blood Cell (RBC) Count 4.43 mill/uL (4.20-5.40); White Blood Cell (WBC) Count 6.3 thou/uL (4.8-10.8)
[2019-12-19] MEDS: Enoxaparin Sodium 30 MG/0.3 ML SYRINGE SC SCH (08:33)
[2019-12-19] MEDS: Isosorbide Mononitrate (ER) 30 MG TAB PO SCH ×2 (08:34→11:42)
[2019-12-19] MEDS: Aspirin Chewable 81 MG TAB PO SCH ×2 (08:34→11:42)
[2019-12-19] MEDS: Metoprolol Tartrate 100 MG TAB PO SCH ×3 (08:34→20:08)
[2019-12-19] MEDS: Amlodipine 10 MG TAB PO SCH ×2 (08:34→11:42)
[2019-12-19] MEDS: hydrALAZINE 25 MG TAB PO SCH ×4 (08:35→20:08)
[2019-12-19] MEDS: DorzolamidE/Timolol 2%/0.5% Ophth Soln 10 ml Bottle EA EYE SCH ×2 (09:13→20:45)
[2019-12-19] MEDS: Labetalol HCl 100 MG/20 ML VIAL SLOW IVP PRN (13:27)
--- NOTE | 2019-12-19 16:38 | PDOC.HOSPP ---
- Subjective Encounter Date: 12/19/19 Encounter Time: 10:00 Subjective: The patient is more alert today. She answered one to two questions then stopped talking. Per son he had long discussion with her about putting a feeding tube in if she doesn't start to eat. Patient then ate more yesterday. Patient's son states that patient overheard nurses talking about her condition in the hallway and repeated what they said to him so he feels she is able to comprehend and understand but not cooperative Patient states that she just doesn't want to eat, and doesn't feel hungry according to son. Patient refuses to answer questions I ask her. She appears to be paranoid. - Objective Vital Signs & Weight: Vital Signs (12 hours) Temp Pulse Resp BP BP BP BP 12/19/19 15:20 59 L 12/19/19 13:27 59 L 12/19/19 11:42 59 L 12/19/19 11:39 59 L 12/19/19 11:00 98.7 F 59 L 18 178/102 H 12/19/19 10:19 136/82 12/19/19 09:41 168/94 H 12/19/19 08:33 193/81 H 12/19/19 08:20 12/19/19 07:39 97.8 F 61 20 196/92 H 12/19/19 05:25 63 175/88 H Pulse Ox 12/19/19 15:20 12/19/19 13:27 12/19/19 11:42 12/19/19 11:39 12/19/19 11:00 97 12/19/19 10:19 12/19/19 09:41 12/19/19 08:33 12/19/19 08:20 97 12/19/19 07:39 97 12/19/19 05:25 Weight Admit Weight 183 lb Weight 177 lb 11.2 oz I&O: 12/18/19 12/19/19 12/20/19 06:59 06:59 06:59 Intake Total 1850 1700 Output Total 1050 550 Balance 800 1150 Result Diagrams: 12/19/19 05:19 12/19/19 05:18 Hospitalist ROS - Review of Systems Constitutional: denies: fever, chills - Medication Medications: Active Medications Generic Name Dose Route Start Last Admin Trade Name Freq PRN Reason Stop Dose Admin Acetaminophen 650 mg 12/08/19 21:03 12/09/19 00:16 Tylenol [place] 650 mg Q4H PRN Administration Headache/Fever or Pain Amlodipine Besylate 10 mg 12/11/19 09:00 12/19/19 11:42 Norvasc PO Not Given DAILY [facility] Aspirin 81 mg 12/09/19 09:00 12/19/19 11:42 Aspirin Chewable PO Not Given DAILY [facility] Atorvastatin Calcium 40 mg 12/08/19 21:00 12/18/19 20:56 Lipitor PO 40 mg HS AMANDA Administration Dorzolamide/Timolol 1 drop 12/08/19 21:00 12/19/19 09:13 Cosopt 2-0.5% Ophth Soln EA EYE 1 drop BID AMANDA Administration Enoxaparin Sodium 30 mg 12/09/19 09:00 12/19/19 08:33 Lovenox SC 30 mg 0900 AMANDA Administration Hydralazine HCl 50 mg 12/08/19 21:00 12/19/19 15:20 Apresoline PO Not Given TID [facility] Hydralazine HCl 10 mg 12/14/19 10:36 12/19/19 05:25 Apresoline SLOW IVP 10 mg Q4H PRN Administration SBP>160 Isosorbide Mononitrate 30 mg 12/11/19 09:00 12/19/19 11:42 Imdur Er PO Not Given DAILY [facility] Labetalol HCl 10 mg 12/16/19 10:39 12/19/19 13:27 Normodyne SLOW IVP 10 mg Q6H PRN Administration SBP Greater Than 170 Latanoprost 1 drop 12/08/19 21:00 12/18/19 21:56 Xalatan 0.005% Ophth Soln EA EYE 1 drop HS [facility] Administration Levothyroxine Sodium 100 mcg 12/09/19 06:00 12/19/19 05:27 Synthroid PO Not Given 0600 [facility] Metoprolol Tartrate 100 mg 12/08/19 21:00 12/19/19 11:41 Lopressor PO Not Given BID [facility] Sodium Chloride 10 ml 12/08/19 21:00 12/19/19 09:12 Flush - Normal Saline IVF Not Given Q12HR [facility] Sodium Chloride 10 ml 12/08/19 18:21 12/09/19 00:25 Flush - Normal Saline IVF 10 ml PRN PRN Administration Saline Flush - Exam General Appearance: NAD, awake alert Eye: PERRL, anicteric sclera ENT: normocephalic atraumatic, no oropharyngeal lesions Neck: supple, no JVD Heart: RRR, no murmur, no gallops Respiratory: CTAB, no wheezes, no rales, no ronchi Gastrointestinal: soft, non-tender, non-distended, normal bowel sounds Extremities: no cyanosis, no clubbing, no edema Hosp A/P - Plan Chest Xray 12/07: no acute process CT head 12/07: small vessel disease CT head 12/13: no acute disease This is an 79 year old female who presented with confusion and agitation, was admitted for hypertensive encephalopathy. She is also s/p treatment for UTi Acute encephalopathy - possibly pseudodementia vs dementia - CT brain showed no acute stroke. This was repeated on the and was negative. MRI brain unable to be done, incompatible with pacemaker - she is sp IV ceftriaxone for five days for E coli UTI - vBG was unremarkable - TSh elevated, levothyroxine was resumed. Patient refused it on , ordering dose of IV levothyroxine 50 mcg today - continue aspirin and statin - spoke to neurology, EEG was normal. She thinks possibly pseudodementia. Son agreeable to psych consult Hypertension - continue amlodipine, hydralazine, metoprolol Hypothyroidism - levothyroxine DVT prophylaxis: lovenox Code status: full code
[2019-12-19] MEDS: Atorvastatin Calcium 40 MG TAB PO SCH (20:08)
[2019-12-19] MEDS: Latanoprost 0.005% Ophth Soln 2.5 ml Bottle EA EYE SCH (20:45)
[2019-12-20 06:03] LABS: Mean Corpuscular HGB CONC 32.2 g/dL (32.0-36.0); Mean Corpuscular Hemoglobin 29.1 pg (27.0-31.0); Mean Corpuscular Volume 90.5 fL (78.0-98.0); Platelet Count 123 thou/uL (130-400); RBC Distribution Width 13.4 % (11.5-14.5); Red Blood Cell (RBC) Count 4.47 mill/uL (4.20-5.40); White Blood Cell (WBC) Count 6.1 thou/uL (4.8-10.8)
[2019-12-20 06:14] LABS: Eosinophils 1 % (0-10); Large Platelets SLIGHT; Lymphocytes 20 % (21-51); MDiff Complete? YES; Monocytes 7 % (0-10); Neutrophil 69 % (42-75); Reactive Lymphocytes 3 % (0-10)
[2019-12-20 06:26] LABS: Anion Gap 12 mmol/L (10-20); BUN (Urea Nitrogen) 11 mg/dL (9.8-20.1); Calc. Creatinine Clearance 58 mL/min (70-130); Calcium 10.3 mg/dL (7.8-10.44); Carbon Dioxide 22 mmol/L (23-31); Chloride 105 mmol/L (98-107); Estimated GFR-MDRD 66; Glucose 109 mg/dL (83-110); Potassium 3.4 mmol/L (3.5-5.1); Sodium 136 mmol/L (136-145)
[2019-12-20] MEDS: Levothyroxine 100 MCG SDV IVP SCH (06:28)
[2019-12-20] MEDS ORDERED: Potassium Chloride 20 MEQ TAB PO SCH (07:45)
[2019-12-20] MEDS: Isosorbide Mononitrate (ER) 30 MG TAB PO SCH (09:43)
[2019-12-20] MEDS: hydrALAZINE 25 MG TAB PO SCH ×4 (09:43→20:08)
[2019-12-20] MEDS: Enoxaparin Sodium 30 MG/0.3 ML SYRINGE SC SCH (09:43)
[2019-12-20] MEDS: Amlodipine 10 MG TAB PO SCH (09:43)
[2019-12-20] MEDS: Metoprolol Tartrate 100 MG TAB PO SCH (09:44)
[2019-12-20] MEDS: Aspirin Chewable 81 MG TAB PO SCH (09:44)
[2019-12-20] MEDS: DorzolamidE/Timolol 2%/0.5% Ophth Soln 10 ml Bottle EA EYE SCH ×2 (09:50→20:04)
[2019-12-20] MEDS: D5W-AA 4.25% with LYTES 1,000 ML IV SCH (14:45)
--- NOTE | 2019-12-20 16:44 | PDOC.HOSPP ---
- Subjective Subjective: Patient has no complaints. She doesn't answer questions when asked and just closes her eyes and pretends to sleep. SHe does open her eyes quickly when you call her name but doesn't follow commands [facility] evaluated patient, and spoke to the son. Son told [facility] patient doesn't trust other people due to bad experiences patient has had with prior hospitalization. Per nursing she refused her morning meds. She was also given apple sauce but patient pocketed it in her mouth - Objective Vital Signs & Weight: Vital Signs (12 hours) Temp Pulse Resp BP BP Pulse Ox 12/20/19 16:00 98.6 F 69 20 119/77 96 12/20/19 10:55 97.9 F 60 18 119/72 94 L 12/20/19 09:43 85 150/86 H 12/20/19 09:00 95 12/20/19 07:47 98.5 F 85 20 150/86 H 95 Weight Admit Weight 183 lb Weight 177 lb 11.2 oz I&O: 12/19/19 12/20/19 12/21/19 06:59 06:59 06:59 Intake Total 1700 810 Output Total 550 Balance 1150 810 Result Diagrams: 12/20/19 05:07 12/20/19 05:07 Hospitalist ROS - Review of Systems Constitutional: denies: fever, chills ENT: denies: ear pain, ear discharge Respiratory: denies: cough, dry - Medication Medications: Active Medications Generic Name Dose Route Start Last Admin Trade Name Freq PRN Reason Stop Dose Admin Acetaminophen 650 mg 12/08/19 21:03 12/09/19 00:16 Tylenol [place] 650 mg Q4H PRN Administration Headache/Fever or Pain Amlodipine Besylate 10 mg 12/11/19 09:00 12/20/19 09:43 Norvasc PO Not Given DAILY [facility] Aspirin 81 mg 12/09/19 09:00 12/20/19 09:44 Aspirin Chewable PO Not Given DAILY [facility] Atorvastatin Calcium 40 mg 12/08/19 21:00 12/19/19 20:08 Lipitor PO 40 mg HS [facility] Administration Dorzolamide/Timolol 1 drop 12/08/19 21:00 12/20/19 09:50 Cosopt 2-0.5% Ophth Soln EA EYE 1 drop BID [facility]ANDA Administration Enoxaparin Sodium 30 mg 12/09/19 09:00 12/20/19 09:43 Lovenox SC 30 mg 0900 [facility] Administration Hydralazine HCl 50 mg 12/08/19 21:00 12/20/19 14:53 Apresoline PO Not Given TID [facility] Hydralazine HCl 10 mg 12/14/19 10:36 12/19/19 17:47 Apresoline SLOW IVP 10 mg Q4H PRN Administration SBP>160 Amino Acids/Electrolytes/Dextrose 1,000 mls @ 60 mls/hr 12/20/19 12:00 14:45 Clinimix E 4.25/5 IV 1,000 mls INF AMANDA Administration Isosorbide Mononitrate 30 mg 12/11/19 09:00 12/20/19 09:43 Imdur Er PO 30 mg DAILY [facility] Administration Labetalol HCl 10 mg 12/16/19 10:39 12/19/19 13:27 Normodyne SLOW IVP 10 mg Q6H PRN Administration SBP Greater Than 170 Latanoprost 1 drop 12/08/19 21:00 12/19/19 20:45 Xalatan 0.005% Ophth Soln EA EYE 1 drop HS [facility] Administration Levothyroxine Sodium 50 mcg 12/20/19 06:00 12/20/19 06:28 Synthroid IVP 50 mcg 0600 [facility] Administration Sodium Chloride 10 ml 12/08/19 21:00 12/20/19 09:46 Flush - Normal Saline IVF 10 ml Q12HR [facility] Administration Sodium Chloride 10 ml 12/08/19 18:21 12/09/19 00:25 Flush - Normal Saline IVF 10 ml PRN PRN Administration Saline Flush - Exam General Appearance: NAD, awake alert General - other findings: patient rfuses to answer questions Eye: PERRL, anicteric sclera ENT: normocephalic atraumatic, no oropharyngeal lesions Neck: no JVD Heart: RRR, no murmur, no gallops, no rubs Respiratory: CTAB, no wheezes, no rales, no ronchi Gastrointestinal: non-distended Extremities: no edema Skin: normal turgor, no lesions, no rashes Neurological: cranial nerve grossly intact, normal sensation to touch, no focal deficits, no new deficit Hosp A/P - Plan Chest Xray 12/07: no acute process CT head 12/07: small vessel disease CT head 12/13: no acute disease This is an 79 year old female who presented with confusion and agitation, was admitted for hypertensive encephalopathy. She is also s/p treatment for UTi Acute encephalopathy - possibly pseudodementia vs dementia vs psychiatric - CT brain showed no acute stroke. This was repeated on the and was negative. MRI brain unable to be done, incompatible with pacemaker but unlikely stroke after discussion with neurology. EEG was normal - she is sp IV ceftriaxone for five days for E coli UTI - vBG was unremarkable - TSh elevated, levothyroxine was resumed. Patient refused it on , on IV levothyroxine - continue aspirin and statin - patient Hypertension - continue amlodipine, hydralazine, metoprolol Hypothyroidism - levothyroxine DVT prophylaxis: lovenox Code status: full code
[2019-12-20] MEDS: Carvedilol 6.25 MG TAB PO SCH (17:13)
[2019-12-20] MEDS: Atorvastatin Calcium 40 MG TAB PO SCH ×2 (20:04→20:08)
[2019-12-20] MEDS: Latanoprost 0.005% Ophth Soln 2.5 ml Bottle EA EYE SCH (20:05)
[2019-12-21] MEDS: Levothyroxine 100 MCG SDV IVP SCH (05:46)
[2019-12-21 06:30] LABS: Anion Gap 13 mmol/L (10-20); BUN (Urea Nitrogen) 16 mg/dL (9.8-20.1); Calc. Creatinine Clearance 63 mL/min (70-130); Calcium 10.2 mg/dL (7.8-10.44); Carbon Dioxide 21 mmol/L (23-31); Chloride 106 mmol/L (98-107); Estimated GFR-MDRD 72; Glucose 111 mg/dL (83-110); Potassium 3.8 mmol/L (3.5-5.1); Sodium 136 mmol/L (136-145)
[2019-12-21] MEDS: D5W-AA 4.25% with LYTES 1,000 ML IV SCH (06:36)
[2019-12-21 07:25] LABS: Hemoglobin 13.3 g/dL (12.0-16.0); Mean Corpuscular HGB CONC 32.8 g/dL (32.0-36.0); Mean Corpuscular Hemoglobin 29.8 pg (27.0-31.0); Mean Corpuscular Volume 90.8 fL (78.0-98.0); Mean Platelet Volume 11.4 fL (7.4-10.4); Platelet Count 107 thou/uL (130-400); RBC Distribution Width 13.4 % (11.5-14.5); Red Blood Cell (RBC) Count 4.48 mill/uL (4.20-5.40); White Blood Cell (WBC) Count 6.9 thou/uL (4.8-10.8)
[2019-12-21] MEDS: Enoxaparin Sodium 30 MG/0.3 ML SYRINGE SC SCH (07:55)
[2019-12-21] MEDS: Carvedilol 6.25 MG TAB PO SCH ×2 (07:55→16:32)
[2019-12-21] MEDS: Isosorbide Mononitrate (ER) 30 MG TAB PO SCH (07:55)
[2019-12-21] MEDS: Amlodipine 10 MG TAB PO SCH (07:56)
[2019-12-21] MEDS: hydrALAZINE 25 MG TAB PO SCH ×3 (07:56→20:07)
[2019-12-21] MEDS: Aspirin Chewable 81 MG TAB PO SCH (07:56)
[2019-12-21] MEDS: DorzolamidE/Timolol 2%/0.5% Ophth Soln 10 ml Bottle EA EYE SCH ×2 (07:57→20:07)
[2019-12-21 08:49] LABS: Band 2 % (5-11); Eosinophils 4 % (0-10); Lymphocytes 24 % (21-51); MDiff Complete? YES; Monocytes 13 % (0-10); Neutrophil 57 % (42-75); Platelet Morphology Comment Appears Decreased; Polychromasia SLIGHT = 2-3 cells (100X) (0-2/hpf); Schistocytes SLIGHT = 2-5 cells (100X) (0-1/hpf)
--- NOTE | 2019-12-21 11:14 | RAD ---
Barium swallow esophagram: DATE: 12/21/2019 HISTORY: 79-year-old female with acute dysphagia, spitting up food. TECHNIQUE: Because of patient's condition, the study was performed on the fluoroscopy table tilted approximately 30-45 degrees semirecumbent. The patient's son was present during the exam, and he stated that the patient has not been drinking through a straw. Therefore, he gave her sepsis of barium by cup. FINDINGS: There appears to be mild to moderate narrowing of the lumen at the esophagogastric junction. The rest of the esophagus the 2 limits. Only a small amount of barium reaches the cardia and proximal fundus of the stomach. This does not progress into the rest of the stomach despite right lateral decu bitus positioning. After the third swallow, the patient vomited significantly. Because of concern for aspiration, the study was terminated at this point. Little or no peristalsis is visualized in the esophagus and stomach. IMPRESSION: 1. Significantly decreased peristalsis of the esophagus and stomach. 2. 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 3. Limited study.
--- NOTE | 2019-12-21 12:05 | PDOC.HOSPP ---
- Subjective Encounter Date: 12/21/19 Encounter Time: 11:00 Subjective: The patient still nonverbal. The patient had a barium swallow today and aspirated and choked on her feeds. She was found to have esophageal stricture. Per son patient had stopped taking her medications, eating and drinking a few weeks prior - Objective Vital Signs & Weight: Vital Signs (12 hours) Temp Pulse Resp BP Pulse Ox 12/21/19 08:00 96 12/21/19 07:48 98.9 F 61 16 133/81 96 Weight Admit Weight 183 lb Weight 177 lb 11.2 oz I&O: 12/20/19 12/21/19 12/22/19 06:59 06:59 06:59 Intake Total 810 900 Balance 810 900 Result Diagrams: 12/21/19 07:15 12/21/19 05:43 Hospitalist ROS - Review of Systems Constitutional: denies: fever, chills ENT: denies: mouth pain Respiratory: denies: cough, dry, shortness of breath - Medication Medications: Active Medications Generic Name Dose Route Start Last Admin Trade Name Freq PRN Reason Stop Dose Admin Acetaminophen 650 mg 12/08/19 21:03 12/09/19 00:16 Tylenol DE 650 mg Q4H PRN Administration Headache/Fever or Pain Amlodipine Besylate 10 mg 12/11/19 09:00 12/21/19 07:56 Norvasc PO 10 mg DAILY AMANDA Administration Aspirin 81 mg 12/09/19 09:00 12/21/19 07:56 Aspirin Chewable PO 81 mg DAILY AMANDA Administration Atorvastatin Calcium 40 mg 12/08/19 21:00 12/20/19 20:08 Lipitor PO Not Given HS AMANDA Carvedilol 12.5 mg 12/20/19 17:00 12/21/19 07:55 Coreg PO 12.5 mg BID-WM AMANDA Administration Dorzolamide/Timolol 1 drop 12/08/19 21:00 12/21/19 07:57 Cosopt 2-0.5% Ophth Soln EA EYE 1 drop BID AMANDA Administration Enoxaparin Sodium 30 mg 12/09/19 09:00 12/21/19 07:55 Lovenox SC 30 mg 0900 AMANDA Administration Hydralazine HCl 50 mg 12/08/19 21:00 12/21/19 07:56 Apresoline PO 50 mg TID AMANDA Administration Hydralazine HCl 10 mg 12/14/19 10:36 12/19/19 17:47 Apresoline SLOW IVP 10 mg Q4H PRN Administration SBP>160 Amino Acids/Electrolytes/Dextrose 1,000 mls @ 60 mls/hr 12/20/19 12:00 06:36 Clinimix E 4.25/5 IV 1,000 mls INF AMANDA Administration Isosorbide Mononitrate 30 mg 12/11/19 09:00 12/21/19 07:55 Imdur Er PO 30 mg DAILY AMANDA Administration Labetalol HCl 10 mg 12/16/19 10:39 12/19/19 13:27 Normodyne SLOW IVP 10 mg Q6H PRN Administration SBP Greater Than 170 Latanoprost 1 drop 12/08/19 21:00 12/20/19 20:05 Xalatan 0.005% Ophth Soln EA EYE 1 drop HS AMANDA Administration Levothyroxine Sodium 50 mcg 12/20/19 06:00 12/21/19 05:46 Synthroid IVP 50 mcg 0600 AMANDA Administration Sodium Chloride 10 ml 12/08/19 21:00 12/21/19 07:56 Flush - Normal Saline IVF Not Given Q12HR AMANDA Sodium Chloride 10 ml 12/08/19 18:21 12/09/19 00:25 Flush - Normal Saline IVF 10 ml PRN PRN Administration Saline Flush - Exam General Appearance: NAD, awake alert General - other findings: obese Eye: PERRL, anicteric sclera ENT: normocephalic atraumatic, no oropharyngeal lesions Neck: supple, symmetric, no JVD Heart: RRR, no murmur, no gallops, no rubs Respiratory: CTAB, no wheezes, no rales, no ronchi Gastrointestinal: soft, non-tender, non-distended, normal bowel sounds Extremities: no cyanosis, no clubbing, no edema Skin: normal turgor, no lesions, no rashes Neurological: cranial nerve grossly intact, normal sensation to touch, no focal deficits, no new deficit Hosp A/P - Plan Chest Xray 12/07: no acute process CT head 12/07: small vessel disease CT head 12/13: no acute disease This is an 79 year old female who presented with confusion and agitation, was admitted for hypertensive encephalopathy. She is also s/p treatment for UTi Acute encephalopathy - intermittent, likely delirium vs poor sleep vs depression - CT brain showed no acute stroke. This was repeated on the and was negative. MRI brain unable to be done, incompatible with pacemaker but unlikely stroke after discussion with neurology. EEG was normal - she is sp IV ceftriaxone for five days for E coli UTI - vBG was unremarkable - TSh elevated, levothyroxine was resumed. Patient refused it on , on IV levothyroxine daily - continue aspirin and statin #Dysphagia #Esophageal stricture - patient had barium swallow today and was found to have an esophageal stricture and poor peristalsis - will place a GI Consult for further evaluation Hypertension - continue amlodipine, hydralazine, metoprolol Hypothyroidism - levothyroxine DVT prophylaxis: lovenox Code status: full code
--- NOTE | 2019-12-21 12:06 | RAD ---
Radiograph abdomen one view: DATE: 12/21/2019 Time: 11:18 AM HISTORY: 79-year-old female with dysphagia and vomiting. Follow-up barium swallow. FINDINGS: Small amount of swallowed barium remains mostly in the fundus of the stomach. Now, a small portion of that barium has entered the body of the stomach. No gastric distention. No contrast has entered the duodenum. Nonobstructive bowel gas pattern. IMPRESSION: Decreased peristalsis of the stomach.
[2019-12-21] MEDS: Atorvastatin Calcium 40 MG TAB PO SCH (20:07)
[2019-12-21] MEDS: Latanoprost 0.005% Ophth Soln 2.5 ml Bottle EA EYE SCH (20:07)
--- NOTE | 2019-12-21 21:01 | CON ---
DATE OF CONSULTATION: 12/21/2019 REASON FOR CONSULTATION: Decreasing oral intake and barium swallow showing a stricture of the distal esophagus. HISTORY OF PRESENT ILLNESS: Ms. Rooney is an 79-year-old female, hospitalized with altered mental status and confusion. Since her admission, she has been seen by Dr. Vallejo for neuro evaluation. The patient is awake, alert, and does not appear to be in any distress. However, she does not really communicate very well. It is kind of difficult to really give me proper history. The admitting history and physical by Dr. Murphy has been reviewed. The patient is known to have type 2 diabetes mellitus, hypertension, and chronic kidney disease. The patient presents to hospital because of confusion and altered mental status. The patient is eating very little since admission. She underwent a barium swallow study today and the barium swallow showed distal esophageal stricture and poor esophageal peristalsis. No relevant history. ALLERGIES: NO DRUG ALLERGIES. SOCIAL HISTORY: The patient lives by herself. Does not smoke or drink alcohol. No history of drug abuse. MEDICAL ILLNESSES: 1. Hypertension. 2. Type 2 diabetes mellitus. 3. Hyperlipidemia. 4. Glaucoma. SURGERIES: 1. Status post pacemaker implant. 2. Hysterectomy. REVIEW OF SYSTEMS: Not able to obtain. PHYSICAL EXAMINATION: GENERAL: She appears very comfortable. She is awake, in no distress. However, does not really answer questions properly. VITAL SIGNS: Afebrile, pulse is 61, and blood pressure is 133/81. HEENT: Conjunctivae are clear. NECK: Supple. No adenitis or thyromegaly noted. CARDIOVASCULAR: First and second heart sounds. LUNGS: Clear to auscultation. ABDOMEN: Abdomen is soft. Abdomen is nondistended. Abdomen is nontender. No organomegaly. No masses. Bowel sounds normal. EXTREMITIES: No edema. LABORATORY DATA: The most recent one; WBC 6900, hemoglobin 13.3, hematocrit 40.7, MCV 90.8, platelet count 107,000, polymorphs 57, bands 2, lymphocytes 24, and monocytes 13. Chem-7, normal lytes, BUN 16, creatinine 0.91, and calcium 10.2. Barium swallow done shows poor esophageal peristalsis and distal esophageal stricture. CLINICAL IMPRESSION: This is an 79-year-old black female, hypertension, diabetes mellitus and chronic kidney disease. Admitted for confusion and also altered mental status. Now, she is awake and alert, but does not really communicate very well. It is very difficult to say if she has any dysphagia from the esophageal stricture. There are no family available. PLAN: EGD and dilation tomorrow. Dr. Quiñonez is on-call for me and will perform the procedure tomorrow. Job ID: [id number] [facility]
[2019-12-22] MEDS: D5W-AA 4.25% with LYTES 1,000 ML IV SCH ×2 (01:38→18:19)
[2019-12-22] MEDS: Levothyroxine 100 MCG SDV IVP SCH (05:29)
[2019-12-22] MEDS: Carvedilol 6.25 MG TAB PO SCH ×2 (05:29→18:15)
[2019-12-22 06:02] LABS: Hemoglobin 12.3 g/dL (12.0-16.0); Mean Corpuscular HGB CONC 31.2 g/dL (32.0-36.0); RBC Distribution Width 13.3 % (11.5-14.5); Red Blood Cell (RBC) Count 4.25 mill/uL (4.20-5.40); White Blood Cell (WBC) Count 6.9 thou/uL (4.8-10.8)
[2019-12-22 06:21] LABS: Mean Platelet Volume 12.2 fL (7.4-10.4); Platelet Count 105 thou/uL (130-400)
[2019-12-22 06:31] LABS: Anion Gap 9 mmol/L (10-20); BUN (Urea Nitrogen) 19 mg/dL (9.8-20.1); Calc. Creatinine Clearance 66 mL/min (70-130); Calcium 10.6 mg/dL (7.8-10.44); Carbon Dioxide 25 mmol/L (23-31); Chloride 107 mmol/L (98-107); Estimated GFR-MDRD 77; Glucose 115 mg/dL (83-110); Potassium 3.8 mmol/L (3.5-5.1); Sodium 137 mmol/L (136-145)
[2019-12-22] MEDS ORDERED: Promethazine HCl 25 MG/ML VIAL SLOW IVP PRN (10:49)
[2019-12-22] MEDS ORDERED: Promethazine HCl 25 MG/ML VIAL IM PRN (10:49)
[2019-12-22] MEDS ORDERED: Ondansetron HCl/PF 4 MG/2 ML Vial IVP PRN (10:49)
--- NOTE | 2019-12-22 11:05 | OP ---
DATE OF PROCEDURE: 12/22/2019 PROCEDURE PERFORMED: EGD with biopsy. INDICATION FOR PROCEDURE: Nausea, vomiting and abnormal GI imaging (barium swallow showing distal esophageal stricture). DESCRIPTION OF PROCEDURE: After the risks and benefits of the procedure were explained to the patient's surrogate including risks of bleeding, infection, perforation, reactions to anesthesia, aspiration and/or pain, informed consent was obtained. The patient was then taken to the endoscopy suite, where deep sedation was administered via propofol and anesthesia support. Once the patient was adequately sedated, she was maneuvered into the left lateral decubitus position, followed by introduction of the standard gastroscope which was introduced into the mouth with intubation of the esophagus, stomach, and the proximal small intestines with the findings listed below. The patient tolerated the procedure well with no immediate perioperative complications. Upon conclusion of the procedure, all equipment was removed from the patient and she was taken to PACU in satisfactory condition. FINDINGS: Esophagus: Normal-appearing mucosa was seen in the proximal mid esophagus. In the distal esophagus, the diaphragmatic pinch was seen at 40 cm while the gastroesophageal junction was well seen at 36 cm denoting a 4 cm hiatal hernia. At the Z-line at the gastroesophageal junction, there was a mild prominence of tissue in addition to some cribriform appearing mucosa concerning for the presence of either Nunez's esophagus or dysplasia. This was subsequently biopsied and placed in a specimen jar for further evaluation. There was no obvious stricture or stenosis noted in the distal esophagus with no difficulty with passage of the standard gastroscope. Given the findings on her barium swallow yesterday using a CRE TTS esophageal balloon, she was empirically dilated to 20 mm with no change seen in the esophageal mucosa afterwards. Otherwise, there was no evidence of erosions, ulcerations, mass lesions, stricture/stenosis or active/recent bleeding. Stomach: Normal-appearing mucosa was seen in the gastric cardia, fundus, body, greater curvature, antrum, and incisura. A hiatal hernia was seen on gastric retroflexion. There was no evidence of erosions, ulcerations, mass lesions, or active/recent bleeding. Duodenum: A mild amount of darker colored mucosa was seen in small patches throughout the duodenal bulb and second portion of the duodenum with a more linear black type appearance to these discoloration. Otherwise, there was no evidence of erosions, ulcerations, mass lesions, or active/recent bleeding seen in both the duodenal bulb and second portion of the duodenum. IMPRESSION: 1. 4 cm hiatal hernia in the distal esophagus without evidence of stricture or stenosis, but empirically dilated to 20 mm with a CRE TTS balloon. 2. 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 3. 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 4. No etiology for the patient's recent abnormal barium swallow was seen during this examination. RECOMMENDATIONS: 1. Would start the patient on a liquid diet with strict anti-reflux/aspiration precautions. 2. Would start the patient on PPI daily in light of her hiatal hernia that may be causing inflammation of the esophageal mucosa without erosive changes. 3. Could consider esophageal manometry as an outpatient if the patient continues to have significant vomiting with ingestion of food stuffs. 4. Would attempt to maintain the patient's upright body posture whenever the patient eats and at least a couple of hours afterwards. 5. Would attempt to avoid any narcotics as they can alter esophageal motility. Job ID: [id number]
[2019-12-22] MEDS ORDERED: PROPOFOL 200 MG/20 ML VIAL ONE (11:18)
[2019-12-22] MEDS: Enoxaparin Sodium 30 MG/0.3 ML SYRINGE SC SCH (12:45)
[2019-12-22] MEDS: hydrALAZINE 25 MG TAB PO SCH ×4 (12:46→21:20)
[2019-12-22] MEDS: DorzolamidE/Timolol 2%/0.5% Ophth Soln 10 ml Bottle EA EYE SCH ×2 (13:01→21:08)
[2019-12-22] MEDS: Aspirin Chewable 81 MG TAB PO SCH (13:11)
[2019-12-22] MEDS: Amlodipine 10 MG TAB PO SCH (13:11)
[2019-12-22] MEDS: Isosorbide Mononitrate (ER) 30 MG TAB PO SCH (13:12)
[2019-12-22] MEDS: Atorvastatin Calcium 40 MG TAB PO SCH ×2 (20:53→21:21)
[2019-12-22] MEDS: Latanoprost 0.005% Ophth Soln 2.5 ml Bottle EA EYE SCH (21:09)
[2019-12-22] MEDS: hydrALAZINE 20 MG/ML VIAL SLOW IVP PRN (21:22)
--- NOTE | 2019-12-22 22:54 | PDOC.HOSPP ---
- Subjective Encounter Date: 12/22/19 Encounter Time: 11:00 Subjective: The patient is s/p endoscopy today with dilation. SHe states she will try to eat liquid food today. However per nursing she is still refusing medications and refusing to eat. - Objective Vital Signs & Weight: Vital Signs (12 hours) Temp Pulse Resp BP BP BP BP 12/22/19 21:22 70 174/93 H 12/22/19 21:20 70 12/22/19 19:32 98.6 F 70 20 174/93 H 12/22/19 16:24 97.7 F 73 16 156/92 H 12/22/19 13:14 97.7 F 64 20 149/85 H 12/22/19 13:11 64 12/22/19 12:50 97.7 F 61 20 177/90 H 12/22/19 12:46 64 12/22/19 12:05 97.7 F 60 18 143/66 H 12/22/19 11:20 97.7 F 64 20 149/85 H Pulse Ox 12/22/19 21:22 12/22/19 21:20 12/22/19 19:32 93 L 12/22/19 16:24 95 12/22/19 13:14 98 12/22/19 13:11 12/22/19 12:50 98 12/22/19 12:46 12/22/19 12:05 95 12/22/19 11:20 98 Weight Admit Weight 183 lb Weight 177 lb 11.2 oz I&O: 12/21/19 12/22/19 12/23/19 06:59 06:59 06:59 Intake Total 900 820 720 Balance 900 820 720 Result Diagrams: 12/22/19 05:40 12/22/19 05:40 Hospitalist ROS - Review of Systems Constitutional: denies: fever, chills - Medication Medications: Active Medications Generic Name Dose Route Start Last Admin Trade Name Freq PRN Reason Stop Dose Admin Acetaminophen 650 mg 12/08/19 21:03 12/09/19 00:16 Tylenol [place] 650 mg Q4H PRN Administration Headache/Fever or Pain Amlodipine Besylate 10 mg 12/11/19 09:00 12/22/19 13:11 Norvasc PO Not Given DAILY AMANDA Aspirin 81 mg 12/09/19 09:00 12/22/19 13:11 Aspirin Chewable PO Not Given DAILY [facility] Atorvastatin Calcium 40 mg 12/08/19 21:00 12/22/19 21:21 Lipitor PO Not Given HS AMANDA Carvedilol 12.5 mg 12/20/19 17:00 12/22/19 18:15 Coreg PO Not Given BID-WM [facility] Dorzolamide/Timolol 1 drop 12/08/19 21:00 12/22/19 21:08 Cosopt 2-0.5% Ophth Soln EA EYE 1 drop BID AMANDA Administration Enoxaparin Sodium 30 mg 12/09/19 09:00 12/22/19 12:45 Lovenox SC Not Given 0900 AMANDA Hydralazine HCl 50 mg 12/08/19 21:00 12/22/19 21:20 Apresoline PO Not Given TID AMANDA Hydralazine HCl 10 mg 12/14/19 10:36 12/22/19 21:22 Apresoline SLOW IVP 10 mg Q4H PRN Administration SBP>160 Amino Acids/Electrolytes/Dextrose 1,000 mls @ 60 mls/hr 12/20/19 12:00 18:19 Clinimix E 4.25/5 IV 1,000 mls INF AMANDA Administration Isosorbide Mononitrate 30 mg 12/11/19 09:00 12/22/19 13:12 Imdur Er PO Not Given DAILY [facility] Labetalol HCl 10 mg 12/16/19 10:39 12/19/19 13:27 Normodyne SLOW IVP 10 mg Q6H PRN Administration SBP Greater Than 170 Latanoprost 1 drop 12/08/19 21:00 12/22/19 21:09 Xalatan 0.005% Ophth Soln EA EYE 1 drop HS AMANDA Administration Levothyroxine Sodium 50 mcg 12/20/19 06:00 12/22/19 05:29 Synthroid IVP 50 mcg 0600 AMANDA Administration Sodium Chloride 10 ml 12/08/19 21:00 12/22/19 21:09 Flush - Normal Saline IVF Not Given Q12HR AMANDA Sodium Chloride 10 ml 12/08/19 18:21 12/09/19 00:25 Flush - Normal Saline IVF 10 ml PRN PRN Administration Saline Flush - Exam General Appearance: NAD, awake alert Eye: PERRL, anicteric sclera ENT: normocephalic atraumatic, no oropharyngeal lesions Neck: supple, no JVD Heart: RRR, no murmur, no gallops, no rubs Respiratory: CTAB, no wheezes, no rales, no ronchi Gastrointestinal: soft, non-tender, non-distended, normal bowel sounds Extremities: no cyanosis, no clubbing, no edema Skin: normal turgor, no lesions, no rashes Neurological: cranial nerve grossly intact, normal sensation to touch, no weakness, no focal deficits Musculoskeletal: normal tone, normal strength, no muscle wasting Psychiatric: normal affect, normal behavior, A&O x 3, oriented to person, not oriented Hosp A/P - Plan Chest Xray 12/07: no acute process CT head 12/07: small vessel disease CT head 12/13: no acute disease This is an 79 year old female who presented with confusion and agitation, was admitted for hypertensive encephalopathy. She is also s/p treatment for UTi Acute encephalopathy - intermittent, likely delirium vs poor sleep vs depression - CT brain showed no acute stroke. This was repeated on the and was negative. MRI brain unable to be done, incompatible with pacemaker but unlikely stroke after discussion with neurology. EEG was normal - she is sp IV ceftriaxone for five days for E coli UTI - vBG was unremarkable - TSh elevated, levothyroxine was resumed. Patient refusing oral so on IV - continue aspirin and statin #Dysphagia #Esophageal stricture - patient had barium swallow 12/20 and was found to have an esophageal stricture and poor peristalsis - eGD today showed no significant stricture but she is s/p dilation to 20 mm. Possible Nunez's noted. On PPI - continue liquid diet - consider palliative care consult since patient refusing to eat or drink. MR saw the patient, per son had no history of psych problems in the past and recommended outpatient monitoring Hypertension - continue amlodipine, hydralazine, metoprolol Hypothyroidism - levothyroxine DVT prophylaxis: lovenox Code status: full code
[2019-12-23 05:42] LABS: Hemoglobin 13.6 g/dL (12.0-16.0); Mean Corpuscular HGB CONC 31.5 g/dL (32.0-36.0); Mean Corpuscular Hemoglobin 29.3 pg (27.0-31.0); Mean Corpuscular Volume 93.1 fL (78.0-98.0); Mean Platelet Volume 12.2 fL (7.4-10.4); Platelet Count 119 thou/uL (130-400); RBC Distribution Width 13.3 % (11.5-14.5); Red Blood Cell (RBC) Count 4.62 mill/uL (4.20-5.40)
[2019-12-23 05:57] LABS: Anion Gap 12 mmol/L (10-20); BUN (Urea Nitrogen) 13 mg/dL (9.8-20.1); Calc. Creatinine Clearance 71 mL/min (70-130); Calcium 11.2 mg/dL (7.8-10.44); Carbon Dioxide 21 mmol/L (23-31); Chloride 107 mmol/L (98-107); Estimated GFR-MDRD 84; Glucose 125 mg/dL (83-110); Potassium 3.6 mmol/L (3.5-5.1); Sodium 136 mmol/L (136-145)
[2019-12-23] MEDS: Levothyroxine 100 MCG SDV IVP SCH (08:43)
[2019-12-23] MEDS: Amlodipine 10 MG TAB PO SCH (08:46)
[2019-12-23] MEDS: Aspirin Chewable 81 MG TAB PO SCH (08:46)
[2019-12-23] MEDS: Isosorbide Mononitrate (ER) 30 MG TAB PO SCH (08:46)
[2019-12-23] MEDS: Carvedilol 6.25 MG TAB PO SCH ×2 (08:47→15:35)
[2019-12-23] MEDS: hydrALAZINE 25 MG TAB PO SCH ×3 (08:47→20:33)
[2019-12-23] MEDS: Enoxaparin Sodium 30 MG/0.3 ML SYRINGE SC SCH (08:47)
[2019-12-23] MEDS: DorzolamidE/Timolol 2%/0.5% Ophth Soln 10 ml Bottle EA EYE SCH ×2 (08:48→20:33)
--- NOTE | 2019-12-23 11:56 | PDOC.HOSPP ---
- Subjective Encounter Date: 12/23/19 Encounter Time: 11:56 Subjective: the patient did take some cream of wheat this morning and had four jellos. Patient states " food was pretty good. " Son noticed she choked some and then she stopped eating after that Son was concerned about patient having hallucinations about family members and other visual hallucinations last night. He was also concerned about her speaking sentences that didn't make sense yesterday night. She continues to refuse medicines. Patient had been living on her own since patient's son was 12 years old and never had any mental issues or depression. He is agreeable to trial of atypical antidepressant to see if it helps. He had questions about whether this could be coronavirus and stated that this is unlikely but even if it was, treatment is supportive . Also questioned about possible dementia and stated it is possibility but patient would likely not be cooperative with neurocognitive testing for official diagnosis since she doesn't talk much to other providers. She also cannot get MRI since pacemaker is incompatible For now, the son wants to proceed with aggressive treatment given that she was functional just few weeks ago. He is interested in her getting a PEG tube to see if it would help. Patient was seen by OT and is improving. They were able to stand her up to day but she has trouble standing up on her own. No concern for orthostatic - Objective Vital Signs & Weight: Vital Signs (12 hours) Temp Pulse Resp BP BP Pulse Ox 12/23/19 08:47 60 150/69 H 12/23/19 08:46 60 150/69 H 12/23/19 07:46 99.0 F 60 18 150/69 H 95 12/23/19 00:00 70 169/74 H Weight Admit Weight 183 lb Weight 177 lb 11.2 oz I&O: 12/22/19 12/23/19 12/24/19 06:59 06:59 06:59 Intake Total 820 1440 Balance 820 1440 Result Diagrams: 12/23/19 04:54 12/23/19 04:54 Hospitalist ROS - Medication Medications: Active Medications Generic Name Dose Route Start Last Admin Trade Name Freq PRN Reason Stop Dose Admin Acetaminophen 650 mg 12/08/19 21:03 12/09/19 00:16 Tylenol [place] 650 mg Q4H PRN Administration Headache/Fever or Pain Amlodipine Besylate 10 mg 12/11/19 09:00 12/23/19 08:46 Norvasc PO 10 mg DAILY AMANDA Administration Aspirin 81 mg 12/09/19 09:00 12/23/19 08:46 Aspirin Chewable PO 81 mg DAILY AMANDA Administration Atorvastatin Calcium 40 mg 12/08/19 21:00 12/22/19 21:21 Lipitor PO Not Given HS AMANDA Carvedilol 12.5 mg 12/20/19 17:00 12/23/19 08:47 Coreg PO 12.5 mg BID-WM AMANDA Administration Dorzolamide/Timolol 1 drop 12/08/19 21:00 12/23/19 08:48 Cosopt 2-0.5% Ophth Soln EA EYE 1 drop BID AMANDA Administration Enoxaparin Sodium 30 mg 12/09/19 09:00 12/23/19 08:47 Lovenox SC 30 mg 0900 AMANDA Administration Hydralazine HCl 50 mg 12/08/19 21:00 12/23/19 08:47 Apresoline PO 50 mg TID AMANDA Administration Hydralazine HCl 10 mg 12/14/19 10:36 12/22/19 21:22 Apresoline SLOW IVP 10 mg Q4H PRN Administration SBP>160 Amino Acids/Electrolytes/Dextrose 1,000 mls @ 60 mls/hr 12/20/19 12:00 18:19 Clinimix E 4.25/5 IV 1,000 mls INF AMANDA Administration Isosorbide Mononitrate 30 mg 12/11/19 09:00 12/23/19 08:46 Imdur Er PO 30 mg DAILY AMANDA Administration Labetalol HCl 10 mg 12/16/19 10:39 12/19/19 13:27 Normodyne SLOW IVP 10 mg Q6H PRN Administration SBP Greater Than 170 Latanoprost 1 drop 12/08/19 21:00 12/22/19 21:09 Xalatan 0.005% Ophth Soln EA EYE 1 drop HS AMANDA Administration Levothyroxine Sodium 50 mcg 12/20/19 06:00 12/23/19 08:43 Synthroid IVP 50 mcg 0600 AMANDA Administration Pantoprazole Sodium 40 mg 12/23/19 09:00 12/23/19 08:47 Protonix PO 40 mg DAILY AMANDA Administration Sodium Chloride 10 ml 12/08/19 21:00 12/23/19 08:48 Flush - Normal Saline IVF Not Given Q12HR AMANDA Sodium Chloride 10 ml 12/08/19 18:21 12/09/19 00:25 Flush - Normal Saline IVF 10 ml PRN PRN Administration Saline Flush - Exam General Appearance: NAD, awake alert General - other findings: answers some questions Eye: PERRL, anicteric sclera ENT: normocephalic atraumatic, no oropharyngeal lesions Neck: no JVD Heart: RRR, no murmur, no gallops, no rubs Respiratory: CTAB, no wheezes, no rales, no ronchi Gastrointestinal: soft, non-tender, non-distended, normal bowel sounds Extremities: no cyanosis, no clubbing, no edema Skin: normal turgor, no lesions, no rashes Neurological: cranial nerve grossly intact, normal sensation to touch, no focal deficits, no new deficit Musculoskeletal: normal tone, normal strength, no muscle wasting Psychiatric: normal affect, normal behavior, A&O x 3, oriented to person Hosp A/P - Plan Chest Xray 12/07: no acute process CT head 12/07: small vessel disease CT head 12/13: no acute disease This is an 79 year old female who presented with confusion and agitation, was admitted for hypertensive encephalopathy. She is also s/p treatment for UTi Encephalopathy - intermittent, likely delirium vs vs dementia vs hypertensive encephalopathy. Stroke less likely Hallucinations- secondary to anasthesia vs delirium - CT brain showed no acute stroke. Repeat CT head on was negative. MRI brain unable to be done, incompatible with pacemaker but this is unlikely stroke after discussion with neurology. EEG was normal - she is sp IV ceftriaxone for five days for E coli UTI - vBG was unremarkable - TSh elevated, levothyroxine was resumed. Currently on IV levothyroxine - continue aspirin and statin - she continues to refuse to eat much, take her medication or be very participative with others. She has no focal deficits. Discussed with son possibility of depression. Will start prozac 20 mg - she was seen by [facility] who recommended she can follow up as an outpatient and recommended on dc to stay with the son -seroquel started prn for hallucinations #Dysphagia #Esophageal stricture - patient had barium swallow 12/20 and was found to have an esophageal stricture and poor peristalsis - eGD 11/22 showed no significant stricture but she is s/p dilation to 20 mm. Possible Nunez's noted, pathology report pending - continue liquid diet - speech therapy to continue to follow - surgery consulted for PEG placement Hypertension - continue amlodipine, hydralazine, metoprolol Hypothyroidism - levothyroxine DVT prophylaxis: lovenox Code status: full code
[2019-12-23] MEDS: D5W-AA 4.25% with LYTES 1,000 ML IV SCH (12:34)
[2019-12-23] MEDS: FLUoxetine HCl 20 MG/5 ML UDCUP PO SCH (15:34)
[2019-12-23] MEDS: Atorvastatin Calcium 40 MG TAB PO SCH (20:33)
[2019-12-23] MEDS: Latanoprost 0.005% Ophth Soln 2.5 ml Bottle EA EYE SCH (20:34)
[2019-12-24] MEDS: Levothyroxine 100 MCG SDV IVP SCH ×2 (05:34→06:48)
[2019-12-24 05:51] LABS: Hemoglobin 12.8 g/dL (12.0-16.0); Mean Corpuscular HGB CONC 31.7 g/dL (32.0-36.0); Mean Corpuscular Hemoglobin 29.4 pg (27.0-31.0); Mean Corpuscular Volume 92.9 fL (78.0-98.0); Platelet Count 114 thou/uL (130-400); RBC Distribution Width 13.4 % (11.5-14.5); Red Blood Cell (RBC) Count 4.35 mill/uL (4.20-5.40); White Blood Cell (WBC) Count 4.5 thou/uL (4.8-10.8)
[2019-12-24 06:08] LABS: Anion Gap 11 mmol/L (10-20); BUN (Urea Nitrogen) 18 mg/dL (9.8-20.1); Calc. Creatinine Clearance 69 mL/min (70-130); Carbon Dioxide 24 mmol/L (23-31); Chloride 107 mmol/L (98-107); Estimated GFR-MDRD 80; Glucose 111 mg/dL (83-110); Potassium 3.8 mmol/L (3.5-5.1); Sodium 138 mmol/L (136-145)
[2019-12-24] MEDS: Carvedilol 6.25 MG TAB PO SCH ×2 (06:48→16:36)
[2019-12-24] MEDS: FLUoxetine HCl 20 MG/5 ML UDCUP PO SCH (08:12)
[2019-12-24] MEDS: hydrALAZINE 25 MG TAB PO SCH ×3 (08:12→20:03)
[2019-12-24] MEDS: Amlodipine 10 MG TAB PO SCH (08:12)
[2019-12-24] MEDS: Isosorbide Mononitrate (ER) 30 MG TAB PO SCH (08:12)
[2019-12-24] MEDS: Enoxaparin Sodium 30 MG/0.3 ML SYRINGE SC SCH (08:12)
[2019-12-24] MEDS: DorzolamidE/Timolol 2%/0.5% Ophth Soln 10 ml Bottle EA EYE SCH ×2 (08:12→20:04)
[2019-12-24] MEDS: Aspirin Chewable 81 MG TAB PO SCH (08:12)
--- NOTE | 2019-12-24 08:56 | PRG ---
DATE OF SERVICE: 12/23/2019 SUBJECTIVE: Nadia Rooney is an 79-year-old female with poor oral intake and some altered mental status. The patient's son tells me she does talk to him very freely. However, she does not talk to anybody else. Compared to two days ago, she was little bit more communicative. today she spoke to me and she states she ate something for breakfast today. As per the hospitalist, she is not eating enough. Initially, it was felt that she had esophageal stricture and after dilation she was better. However, the EGD showed no esophageal stricture. The patient remains comfortable, she does talk today. OBJECTIVE: VITAL SIGNS: Afebrile, pulse is 63, and blood pressure is 112/76. CARDIOVASCULAR: Within normal limits. LUNGS: Within normal limits. ABDOMEN: Soft. No tenderness. PLAN: EGD and PEG tube placement tomorrow. Job ID: [id number] [id number]
[2019-12-24] MEDS ORDERED: Ondansetron HCl/PF 4 MG/2 ML Vial IVP PRN (09:23)
[2019-12-24] MEDS ORDERED: Promethazine HCl 25 MG/ML VIAL IM PRN (09:23)
[2019-12-24] MEDS ORDERED: Promethazine HCl 25 MG/ML VIAL SLOW IVP PRN (09:23)
[2019-12-24] MEDS: hydrALAZINE 20 MG/ML VIAL SLOW IVP PRN (11:50)
[2019-12-24] MEDS ORDERED: Lidocaine 1% PF 5 ML VIAL ONE (11:55)
[2019-12-24] MEDS ORDERED: PROPOFOL 200 MG/20 ML VIAL ONE (11:55)
--- NOTE | 2019-12-24 12:35 | OP ---
DATE OF PROCEDURE: 12/24/2019 PROCEDURE PERFORMED: Esophagogastroduodenoscopy with endoscopic gastrostomy tube placement. PREOPERATIVE DIAGNOSES: Failure to thrive, decreased oral intake. POSTOPERATIVE DIAGNOSES: Normal exam except for small hiatus hernia. There was no pathology seen in the stomach or the duodenum. DESCRIPTION OF PROCEDURE: The patient was given IV Ancef 2 g before the procedure. The patient was placed on her back and a bite block was placed. The patient was given sedation by Anesthesia Department. A Pentax video gastroscope under direct vision was passed down to the oropharynx past the GE junction into the stomach and subsequently into the descending duodenum. The esophageal mucosa appeared normal. In the GE junction, no pathology seen. She had small hiatus hernia. Retroflexion failed to show any pathology in fundus or cardia. In the gastric body and gastric antrum, no lesion seen. In the duodenal bulb and descending duodenum, no lesion seen. The G-tube site was marked by applying finger pressure over the abdominal wall. The site was cleaned and surgically prepped. The site was anesthetized with 1% xylocaine infiltration. Over the site, a size 16 Angiocath was advanced into the stomach. Through the Angiocath, a guidewire was fed into the stomach. This was grasped with polypectomy snare and pulled outside the mouth. The gastrostomy tube was connected to the end of the guidewire protruding outside the mouth. The wire was pulled back retrograde and the tube was left in place after a small incision was made to facilitate the tube coming out. The patient was re-scoped again. There were no complications noted. The stomach decompressed and the scope was removed. RECOMMENDATIONS: May start tube feeding this afternoon at 2 o'clock. Job ID: [id number]
--- NOTE | 2019-12-24 15:51 | PDOC.HOSPP ---
- Subjective Encounter Date: 12/24/19 Subjective: The patient is more alert today. - Objective Vital Signs & Weight: Vital Signs (12 hours) Temp Pulse Resp BP BP Pulse Ox 12/24/19 14:45 155/68 H 12/24/19 14:25 65 176/93 H 12/24/19 12:47 155/62 H 12/24/19 11:50 65 176/93 H 12/24/19 08:12 60 12/24/19 08:00 97 12/24/19 07:21 98.0 F 60 18 113/73 97 12/24/19 06:48 142/82 H 12/24/19 04:00 98 F 80 19 142/82 H 97 Weight Admit Weight 183 lb Weight 177 lb 11.2 oz I&O: 12/23/19 12/24/19 12/25/19 06:59 06:59 06:59 Intake Total 1440 1060 Balance 1440 1060 Result Diagrams: 12/24/19 05:22 12/24/19 05:22 Additional Labs: Accuchecks 12/24/19 11:33 POC Glucose 114 H Hospitalist ROS - Medication Medications: Active Medications Generic Name Dose Route Start Last Admin Trade Name Freq PRN Reason Stop Dose Admin Acetaminophen 650 mg 12/08/19 21:03 12/09/19 00:16 Tylenol [place] 650 mg Q4H PRN Administration Headache/Fever or Pain Amlodipine Besylate 10 mg 12/11/19 09:00 12/24/19 08:12 Norvasc PO Not Given DAILY [facility] Aspirin 81 mg 12/09/19 09:00 12/24/19 08:12 Aspirin Chewable PO Not Given DAILY [facility] Atorvastatin Calcium 40 mg 12/08/19 21:00 12/23/19 20:33 Lipitor PO Not Given HS [facility] Carvedilol 12.5 mg 12/20/19 17:00 12/24/19 06:48 Coreg PO 12.5 mg BID-WM [facility] Administration Cholecalciferol 2,000 units 12/23/19 09:00 12/24/19 08:12 Vitamin D3 PO Not Given DAILY [facility] Dorzolamide/Timolol 1 drop 12/08/19 21:00 12/24/19 08:12 Cosopt 2-0.5% Ophth Soln EA EYE Not Given BID [facility] Enoxaparin Sodium 30 mg 12/09/19 09:00 12/24/19 08:12 Lovenox SC Not Given 0900 AMANDA Fluoxetine HCl 20 mg 12/23/19 09:00 12/24/19 08:12 Prozac Oral Soln PO Not Given DAILY AMANDA Hydralazine HCl 50 mg 12/08/19 21:00 12/24/19 14:25 Apresoline PO Not Given TID AMANDA Hydralazine HCl 10 mg 12/14/19 10:36 12/24/19 11:50 Apresoline SLOW IVP 10 mg Q4H PRN Administration SBP>160 Amino Acids/Electrolytes/Dextrose 1,000 mls @ 60 mls/hr 12/20/19 12:00 12:34 Clinimix E 4.25/5 IV 1,000 mls INF AMANDA Administration Isosorbide Mononitrate 30 mg 12/11/19 09:00 12/24/19 08:12 Imdur Er PO Not Given DAILY AMANDA Labetalol HCl 10 mg 12/16/19 10:39 12/19/19 13:27 Normodyne SLOW IVP 10 mg Q6H PRN Administration SBP Greater Than 170 Latanoprost 1 drop 12/08/19 21:00 12/23/19 20:34 Xalatan 0.005% Ophth Soln EA EYE 1 drop HS AMANDA Administration Levothyroxine Sodium 50 mcg 12/20/19 06:00 12/24/19 06:48 Synthroid IVP 50 mcg 0600 AMANDA Administration Pantoprazole Sodium 40 mg 12/23/19 09:00 12/24/19 08:13 Protonix PO Not Given DAILY AMANDA Sodium Chloride 10 ml 12/08/19 21:00 12/24/19 08:13 Flush - Normal Saline IVF Not Given Q12HR AMANDA Sodium Chloride 10 ml 12/08/19 18:21 12/09/19 00:25 Flush - Normal Saline IVF 10 ml PRN PRN Administration Saline Flush - Exam General Appearance: awake alert ENT: normocephalic atraumatic Neck: supple Heart: RRR Respiratory: CTAB Gastrointestinal: soft, non-tender, non-distended Hosp A/P (1) Delirium Code(s): R41.0 - DISORIENTATION, UNSPECIFIED Status: Acute (2) UTI (urinary tract infection) Status: Acute (3) Hypertensive emergency Code(s): I16.1 - HYPERTENSIVE EMERGENCY Status: Acute - Plan The patient is not taking her oral medications including oral antihypertensives. Her blood pressure is being controlled with IV hydralazine and labetalol. Confusion persisted despite treatment of UTI. Completed 5 days of Ceftriaxone. No evidence of sepsis. KRISTAL due to dehydration and poor PO intake resolved with IVF. No acute abnormalities on CT head. EEG shows slowing but no seizure activity. Suspect CVA. MRI on Thursday as radiology will need to contact pacemaker company. If positive for CVA and continues to not eat or take medications, family open for feeding tube. 12/23: MRI could not be performed due to pacemaker being incompatible. PEG tube placed today. To initiate tube feeding this afternoon.
[2019-12-24] MEDS: Atorvastatin Calcium 40 MG TAB PO SCH (20:04)
[2019-12-24] MEDS: Latanoprost 0.005% Ophth Soln 2.5 ml Bottle EA EYE SCH (20:32)
[2019-12-25] MEDS: Enoxaparin Sodium 30 MG/0.3 ML SYRINGE SC SCH (08:21)
[2019-12-25] MEDS: Aspirin Chewable 81 MG TAB PO SCH (08:22)
[2019-12-25] MEDS: Amlodipine 10 MG TAB PO SCH (08:22)
[2019-12-25] MEDS: Carvedilol 6.25 MG TAB PO SCH ×2 (08:22→17:56)
[2019-12-25] MEDS: hydrALAZINE 25 MG TAB PO SCH ×3 (08:22→21:52)
[2019-12-25] MEDS: Isosorbide Mononitrate (ER) 30 MG TAB PO SCH (08:22)
[2019-12-25] MEDS: DorzolamidE/Timolol 2%/0.5% Ophth Soln 10 ml Bottle EA EYE SCH ×2 (08:23→22:00)
[2019-12-25] MEDS: FLUoxetine HCl 20 MG/5 ML UDCUP PO SCH (08:34)
--- NOTE | 2019-12-25 11:04 | PDOC.HOSPP ---
- Subjective Encounter Date: 12/25/19 Subjective: The patient is awake and was able to answer my questions for the first time since 2 weeks ago. - Objective Vital Signs & Weight: Vital Signs (12 hours) Temp Pulse Resp BP BP Pulse Ox 12/25/19 08:22 60 150/71 H 12/25/19 07:33 97.8 F 60 18 154/78 H 97 12/25/19 06:20 98.1 F 18 151/65 H 97 12/25/19 00:00 97.9 F 62 18 127/72 96 Weight Admit Weight 183 lb Weight 177 lb 11.2 oz I&O: 12/24/19 12/25/19 12/26/19 06:59 06:59 06:59 Intake Total 1060 2295 Balance 1060 2295 Result Diagrams: 12/24/19 05:22 12/24/19 05:22 Additional Labs: Accuchecks 12/24/19 12/24/19 16:28 11:33 POC Glucose 113 H 114 H Hospitalist ROS - Medication Medications: Active Medications Generic Name Dose Route Start Last Admin Trade Name Freq PRN Reason Stop Dose Admin Acetaminophen 650 mg 12/08/19 21:03 12/09/19 00:16 Tylenol NH 650 mg Q4H PRN Administration Headache/Fever or Pain Amlodipine Besylate 10 mg 12/11/19 09:00 12/25/19 08:22 Norvasc PO 10 mg DAILY AMANDA Administration Aspirin 81 mg 12/09/19 09:00 12/25/19 08:22 Aspirin Chewable PO 81 mg DAILY AMANDA Administration Atorvastatin Calcium 40 mg 12/08/19 21:00 12/24/19 20:04 Lipitor PO 40 mg HS AMANDA Administration Carvedilol 12.5 mg 12/20/19 17:00 12/25/19 08:22 Coreg PO 12.5 mg BID-WM AMANDA Administration Cholecalciferol 2,000 units 12/23/19 09:00 12/25/19 08:22 Vitamin D3 PO 2,000 units DAILY AMANDA Administration Dorzolamide/Timolol 1 drop 12/08/19 21:00 12/25/19 08:23 Cosopt 2-0.5% Ophth Soln EA EYE 1 drop BID AMANDA Administration Enoxaparin Sodium 30 mg 12/09/19 09:00 12/25/19 08:21 Lovenox SC 30 mg 0900 AMANDA Administration Fluoxetine HCl 20 mg 12/23/19 09:00 12/25/19 08:34 Prozac Oral Soln PO 20 mg DAILY AMANDA Administration Hydralazine HCl 50 mg 12/08/19 21:00 12/25/19 08:22 Apresoline PO 50 mg TID AMANDA Administration Hydralazine HCl 10 mg 12/14/19 10:36 12/24/19 11:50 Apresoline SLOW IVP 10 mg Q4H PRN Administration SBP>160 Isosorbide Mononitrate 30 mg 12/11/19 09:00 12/25/19 08:22 Imdur Er PO 30 mg DAILY AMANDA Administration Labetalol HCl 10 mg 12/16/19 10:39 12/19/19 13:27 Normodyne SLOW IVP 10 mg Q6H PRN Administration SBP Greater Than 170 Latanoprost 1 drop 12/08/19 21:00 12/24/19 20:32 Xalatan 0.005% Ophth Soln EA EYE 1 drop HS AMANDA Administration Levothyroxine Sodium 50 mcg 12/20/19 06:00 12/24/19 06:48 Synthroid IVP 50 mcg 0600 AMANDA Administration Pantoprazole Sodium 40 mg 12/23/19 09:00 12/25/19 08:22 Protonix PO 40 mg DAILY AMANDA Administration Sodium Chloride 10 ml 12/08/19 21:00 12/25/19 08:24 Flush - Normal Saline IVF 10 ml Q12HR AAMNDA Administration Sodium Chloride 10 ml 12/08/19 18:21 12/09/19 00:25 Flush - Normal Saline IVF 10 ml PRN PRN Administration Saline Flush - Exam General Appearance: awake alert ENT: normocephalic atraumatic Neck: supple Heart: RRR Respiratory: normal chest expansion, no tachypnea Gastrointestinal: soft, non-tender, non-distended Hosp A/P (1) Delirium Code(s): R41.0 - DISORIENTATION, UNSPECIFIED Status: Acute (2) UTI (urinary tract infection) Status: Acute (3) Hypertensive emergency Code(s): I16.1 - HYPERTENSIVE EMERGENCY Status: Acute - Plan The patient is not taking her oral medications including oral antihypertensives. Her blood pressure is being controlled with IV hydralazine and labetalol. Confusion persisted despite treatment of UTI. Completed 5 days of Ceftriaxone. No evidence of sepsis. KRISTAL due to dehydration and poor PO intake resolved with IVF. No acute abnormalities on CT head. EEG shows slowing but no seizure activity. Suspect CVA. MRI on Thursday as radiology will need to contact pacemaker company. If positive for CVA and continues to not eat or take medications, family open for feeding tube. 12/23: MRI could not be performed due to pacemaker being incompatible. PEG tube placed today. To initiate tube feeding this afternoon. 12/24: Tube feeding currently tolerated at 25ml/hrs. She is also taking her pills crushed in pudding. Continue to advance feeding to achieve target. Plan to switch to bolus feeding prior to discharge.
--- NOTE | 2019-12-25 13:05 | PRG ---
DATE OF SERVICE: 12/25/2019 SUBJECTIVE: An 79-year-old female with altered mental status, decreasing oral intake. She underwent EGD and PEG tube placement yesterday. She is tolerating tube feeding. The G-tube site appears very healthy. She is more awake and alert. However, she tends to doze off as she is talking. She is unable to tell me who is her primary care doctor is. Denies abdominal pain, nausea, vomiting. The patient is seen along with her son in the room. She is able to tell me her son's name. OBJECTIVE: GENERAL: Appears comfortable. VITAL SIGNS: Stable. CARDIOVASCULAR: Within normal limits. LUNGS: Within normal limits. ABDOMEN: Soft, nontender. The G-tube site appears healthy and the bumper loosened up. Dressing removed. RECOMMENDATIONS: 1. Advance diet to pureed diet. 2. Increase tube feeding to 50 mL/hour. Job ID: [id number]
[2019-12-25] MEDS: Atorvastatin Calcium 40 MG TAB PO SCH (21:52)
[2019-12-25] MEDS: Latanoprost 0.005% Ophth Soln 2.5 ml Bottle EA EYE SCH (21:55)
[2019-12-26] MEDS: Levothyroxine 100 MCG SDV IVP SCH (06:09)
[2019-12-26] MEDS: Pantoprazole 40 MG GRANULES PACKET PO SCH (08:53)
[2019-12-26] MEDS: DorzolamidE/Timolol 2%/0.5% Ophth Soln 10 ml Bottle EA EYE SCH ×2 (08:54→20:30)
[2019-12-26] MEDS: Aspirin Chewable 81 MG TAB PO SCH (08:54)
[2019-12-26] MEDS: Enoxaparin Sodium 30 MG/0.3 ML SYRINGE SC SCH (08:54)
[2019-12-26] MEDS: Amlodipine 10 MG TAB PO SCH (08:54)
[2019-12-26] MEDS: Isosorbide Mononitrate (ER) 30 MG TAB PO SCH (08:54)
[2019-12-26] MEDS: hydrALAZINE 25 MG TAB PO SCH ×3 (08:54→20:30)
[2019-12-26] MEDS: Carvedilol 6.25 MG TAB PO SCH ×2 (08:54→17:21)
[2019-12-26] MEDS: FLUoxetine HCl 20 MG/5 ML UDCUP PO SCH (08:55)
--- NOTE | 2019-12-26 10:14 | PDOC.HOSPP ---
- Subjective Encounter Date: 12/26/19 Subjective: More interactive today. - Objective Vital Signs & Weight: Vital Signs (12 hours) Temp Pulse Resp BP BP Pulse Ox 12/26/19 08:54 60 129/66 12/26/19 07:10 98.0 F 60 20 146/70 H 96 Weight Admit Weight 183 lb Weight 177 lb 11.2 oz I&O: 12/25/19 12/26/19 12/27/19 06:59 06:59 06:59 Intake Total 2295 690 Balance 2295 690 Result Diagrams: 12/24/19 05:22 12/24/19 05:22 Hospitalist ROS - Medication Medications: Active Medications Generic Name Dose Route Start Last Admin Trade Name Freq PRN Reason Stop Dose Admin Acetaminophen 650 mg 12/08/19 21:03 12/09/19 00:16 Tylenol [place] 650 mg Q4H PRN Administration Headache/Fever or Pain Amlodipine Besylate 10 mg 12/11/19 09:00 12/26/19 08:54 Norvasc PO 10 mg DAILY AMANDA Administration Aspirin 81 mg 12/09/19 09:00 12/26/19 08:54 Aspirin Chewable PO 81 mg DAILY AMANDA Administration Atorvastatin Calcium 40 mg 12/08/19 21:00 12/25/19 21:52 Lipitor PO 40 mg HS AMANDA Administration Carvedilol 12.5 mg 12/20/19 17:00 12/26/19 08:54 Coreg PO 12.5 mg BID-WM AMANDA Administration Cholecalciferol 2,000 units 12/23/19 09:00 12/26/19 08:53 Vitamin D3 PO 2,000 units DAILY AMANDA Administration Dorzolamide/Timolol 1 drop 12/08/19 21:00 12/26/19 08:54 Cosopt 2-0.5% Ophth Soln EA EYE 1 drop BID AMANDA Administration Enoxaparin Sodium 30 mg 12/09/19 09:00 12/26/19 08:54 Lovenox SC 30 mg 0900 AMANDA Administration Fluoxetine HCl 20 mg 12/23/19 09:00 12/26/19 08:55 Prozac Oral Soln PO 20 mg DAILY AMANDA Administration Hydralazine HCl 50 mg 12/08/19 21:00 12/26/19 08:54 Apresoline PO 50 mg TID AMANDA Administration Hydralazine HCl 10 mg 12/14/19 10:36 12/24/19 11:50 Apresoline SLOW IVP 10 mg Q4H PRN Administration SBP>160 Isosorbide Mononitrate 30 mg 12/11/19 09:00 12/26/19 08:54 Imdur Er PO 30 mg DAILY AMANDA Administration Labetalol HCl 10 mg 12/16/19 10:39 12/19/19 13:27 Normodyne SLOW IVP 10 mg Q6H PRN Administration SBP Greater Than 170 Latanoprost 1 drop 12/08/19 21:00 12/25/19 21:55 Xalatan 0.005% Ophth Soln EA EYE 1 drop HS AMANDA Administration Levothyroxine Sodium 50 mcg 12/20/19 06:00 12/26/19 06:09 Synthroid IVP 50 mcg 0600 AMANDA Administration Pantoprazole Sodium 40 mg 12/26/19 09:00 12/26/19 08:53 Protonix PO 40 mg DAILY AMANDA Administration Sodium Chloride 10 ml 12/08/19 21:00 12/26/19 08:55 Flush - Normal Saline IVF 10 ml Q12HR AMANDA Administration Sodium Chloride 10 ml 12/08/19 18:21 12/09/19 00:25 Flush - Normal Saline IVF 10 ml PRN PRN Administration Saline Flush - Exam General Appearance: awake alert ENT: normocephalic atraumatic Neck: supple Respiratory: normal chest expansion, no tachypnea Gastrointestinal: soft, non-tender, non-distended Hosp A/P (1) Delirium Code(s): R41.0 - DISORIENTATION, UNSPECIFIED Status: Acute (2) UTI (urinary tract infection) Status: Acute (3) Hypertensive emergency Code(s): I16.1 - HYPERTENSIVE EMERGENCY Status: Acute - Plan The patient is not taking her oral medications including oral antihypertensives. Her blood pressure is being controlled with IV hydralazine and labetalol. Confusion persisted despite treatment of UTI. Completed 5 days of Ceftriaxone. No evidence of sepsis. KRISTAL due to dehydration and poor PO intake resolved with IVF. No acute abnormalities on CT head. EEG shows slowing but no seizure activity. Suspect CVA. MRI on Thursday as radiology will need to contact pacemaker company. If positive for CVA and continues to not eat or take medications, family open for feeding tube. 12/23: MRI could not be performed due to pacemaker being incompatible. PEG tube placed today. To initiate tube feeding this afternoon. 12/24: Tube feeding currently tolerated at 25ml/hrs. She is also taking her pills crushed in pudding. Continue to advance feeding to achieve target. Plan to switch to bolus feeding prior to discharge. 12/25: Tube feeding to be changed to bolus. PT&OT. For IR vs Home w HH and family.
[2019-12-26] MEDS: Atorvastatin Calcium 40 MG TAB PO SCH (20:30)
[2019-12-26] MEDS: Latanoprost 0.005% Ophth Soln 2.5 ml Bottle EA EYE SCH (20:36)
[2019-12-27] MEDS ORDERED: Levothyroxine Sodium 50 MCG TAB PER TUBE SCH (06:00)
[2019-12-27] MEDS: hydrALAZINE 25 MG TAB PO SCH ×2 (10:08→15:14)
[2019-12-27] MEDS: Isosorbide Mononitrate (ER) 30 MG TAB PO SCH ×2 (10:08→10:23)
[2019-12-27] MEDS: Enoxaparin Sodium 30 MG/0.3 ML SYRINGE SC SCH (10:08)
[2019-12-27] MEDS: Carvedilol 6.25 MG TAB PO SCH (10:08)
[2019-12-27] MEDS: Amlodipine 10 MG TAB PO SCH (10:09)
[2019-12-27] MEDS: Aspirin Chewable 81 MG TAB PO SCH (10:09)
[2019-12-27] MEDS: Pantoprazole 40 MG GRANULES PACKET PO SCH (10:10)
[2019-12-27] MEDS: FLUoxetine HCl 20 MG/5 ML UDCUP PO SCH (10:10)
[2019-12-27] MEDS: DorzolamidE/Timolol 2%/0.5% Ophth Soln 10 ml Bottle EA EYE SCH (10:10)
[2019-12-27 16:37] VITALS: BP 112/72; TEMP 98.2
--- NOTE | 2019-12-28 02:34 | DIS ---
DATE OF ADMISSION: 12/09/2019 DATE OF DISCHARGE: 12/27/2019 DISCHARGE DIAGNOSES: 1. Hypertensive emergency. 2. Urinary tract infection. 3. Delirium. 4. Depression. 5. Failure to thrive. 6. Esophageal stricture. 7. Dysphagia. 8. Hypothyroidism. DISCHARGE MEDICATIONS: 1. Aspirin 81 mg orally daily. 2. Prozac 20 mg orally daily. 3. Protonix 40 mg orally daily. 4. Seroquel 12.5 mg orally as needed at night for agitation. 5. Atorvastatin 80 mg orally nightly. 6. Hydralazine 50 mg orally t.i.d. 7. Ezetimibe 10 mg orally daily. 8. Furosemide 20 mg orally daily. 9. Levothyroxine 100 mcg orally daily. 10. Lopressor 100 mg orally twice daily. 11. Mirabegron 50 mg orally daily. HISTORY OF PRESENT ILLNESS AND HOSPITAL COURSE: The patient is an 79-year-old female with past medical history of hypertension, diabetes mellitus, hyperlipidemia, hypothyroidism, and glaucoma, who was admitted to the hospital for altered mental status and UTI. The patient was managed with IV antibiotics for her UTI. She was also hypertensive on admission and we attempted to control it by oral medications; however, the patient did not want to take any oral medications, so control was achieved with IV medicine in the early phase of hospitalization. Her mental status did not improve for treatment of UTI and the patient was having persistent confusion and lethargy. Neurology service consulted and the patient underwent imaging studies to her brain in addition to EEG and all her studies came back unremarkable. The impression was her encephalopathy is likely metabolic. The patient continued to refuse oral intake and remained confused. A barium swallow study was done and esophageal stricture was noted. 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 The patient was failing to thrive due to poor oral intake and decision was made by the medical team and the family to pursue alternative means of feeding via PEG tube, which was inserted successfully, and tube feeding was started and increased gradually and the patient tolerated that well. She was also started on Prozac for possible depression. Over the last 4 days of hospitalization after initiation of tube feeding, the patient's mental status started to improve gradually. On the day of discharge, the patient was able to communicate with the physician and her family. Tube feeding will be continued in a bolus manner. Outpatient followup with PCP was recommended. Job ID: [id number] [facility]OSPITAL[facility]
--- NOTE | 2019-12-28 05:27 | PQF ---
ZEUS PINO MOEZ [id number] CLINICAL DOCUMENTATION CLARIFICATION FORM: POST DISCHARGE Addendum to original discharge summary date: ____ Late entry note date: __ DATE: 12/28/19 ATTN: Martin Haney Please exercise your independent, professional judgment in responding to the clarification form. Clinical indicators are provided on the bottom of this form for your review Can you please further clarify the specificity of Encephalopathy? Please check appropriate box(s): [ >] Encephalopathy: Type: [ >] Acute [ ] Subacute [ ] Chronic Etiology: [ ] Hypertensive [ > ] Metabolic [ ] Toxic [ ] Drug induced: [ ] Unspecified [ ] in the setting of underlying dementia [ ] Other diagnosis please specify [ ] Unable to determine In addition, please specify: Present on Admission (POA): [ > ] Yes [ ] No [ ] Unable to determine For continuity of documentation, please document condition throughout progress notes and discharge summary. Thank You. CLINICAL INDICATORS - SIGNS / SYMPTOMS / LABS H and P pg.1- Confusion Hospitalist PN Dr. Murphy 12/08 pg.5- hypertensive encephalopathy Hospitalist PN 12/16 Dr. Manzano pg.6- Acute encephalopathy- poss stroke vs LEONEL? Hospitalist PN 12/16 Dr. Manzano pg.6- was admitted for hypertensive encephalopathy Consult pg.8 Dr. Souza - Assessment: consulted for AMS which may be secondary to toxic metabolic etiology vs intracranial pathology vs seizures Hospitalist PN Dr. Alberto pg.5 12/19- Acute encephalopathy possibly pseudodementia vs dementia vs psychiatric Hospitalist PN 12/22 pg.6- Encephalopathy intermittent likely delirium vs dementia vs hypertensive encephalopathy Labs Ammonia: 12/07=19 RISK FACTORS UTI- Hospitalist PN pg.5 KRISTAL- H and P 79 years old female - H and P pg.1 Hypertensive Emergency Hospitalist PN pg.5 HTN- H and P pg.1 DM II- H and P pg.1 CKD- H and P pg.1 TREATMENTS: CT Brain 12/[address] Cho IV Fluids- MAR Hydralazine 20mg IV- MAR Lorazepam Ativan 2gm IV- MAR Ceftriaxone 2gm IV- MAR EEG DS pg 1 12/27 Seroquel 12.5mg Oral MAR 11/22 (This form is maintained as a part of the permanent medical record) 2014 [employer]. All Rights Reserved [email or web address]
== END 2019-12-27 16:44 | disposition home health service (06) | DRG 280 ==
LOC: ERS 13:51 → 2SE 18:02 → OBSVTOIN 12-09 13:09 → T4-A 12-14 18:18
PROVIDERS: ADMIT Internal Medicine; ATTEND Internal Medicine
PROC: 0DB48ZX Excision of Esophagogastric Junction, Via Natural or Artificial Opening Endoscopic, Diagnostic (ICD-10-PCS; principal; 2019-12-22)
PROC: 0DH63UZ Insertion of Feeding Device into Stomach, Percutaneous Approach (ICD-10-PCS; 2019-12-24)
DX: I16.1 Hypertensive emergency (principal); I21.A1 Myocardial infarction type 2; G93.41 Metabolic encephalopathy; N39.0 Urinary tract infection, site not specified; N17.9 Acute kidney failure, unspecified; E03.9 Hypothyroidism, unspecified; E78.5 Hyperlipidemia, unspecified; B96.20 Unspecified Escherichia coli [E. coli] as the cause of diseases classified elsewhere; E86.0 Dehydration; I12.9 Hypertensive chronic kidney disease with stage 1 through stage 4 chronic kidney disease, or unspecified chronic kidney disease; E11.22 Type 2 diabetes mellitus with diabetic chronic kidney disease; N18.9 Chronic kidney disease, unspecified; K22.2 Esophageal obstruction; H40.9 Unspecified glaucoma; K44.9 Diaphragmatic hernia without obstruction or gangrene; K63.89 Other specified diseases of intestine; E55.9 Vitamin D deficiency, unspecified; Z90.710 Acquired absence of both cervix and uterus; Z95.810 Presence of automatic (implantable) cardiac defibrillator; Z91.14 Patient's other noncompliance with medication regimen; R62.7 Adult failure to thrive; Z68.32 Body mass index [BMI] 32.0-32.9, adult
CPT/HCPCS: 36415; 36416; 51701; 70450; 71045; 74018; 74220; 80048; 80053; 81001; 81003; 81015; 82140; 82306; 82550; 82553; 82805; 83605; 83690; 83735; 83970; 84439; 84443; 84484; 85007; 85025; 85027; 87040; 87077; 87086; 87186; 88305; 88312; 88313; 93005; 95816; 95819; 96361; 96365; 96375; A4353; J0360; J0690; J0696; J1630; J1650; J1940; J2001; J2060; J2704; J3475; J3480; J3490; J7030